=== PATIENT | male | born 1995 | race Caucasian/White ===

== ENCOUNTER 2017-06-27 16:25 | Inpatient (IN) | payer MEDICAID, OTHER ==
[~2017-06-27] VITALS: Ht 177.8 cm; Wt 86.2 kg
[~2017-06-27 16:25] MED LIST: LITH300C3 PO; OLAN10TA3 PO
[2017-06-27 18:34] LABS: BASOPHILS % (AUTO) 0.2 % (0.0-2.0); EOSINOPHILS % (AUTO) 0.9 % (1.0-6.0); HEMATOCRIT 45.2 % (41-53); HEMOGLOBIN 15.6 g/dL (13.5-17.5); LYMPHOCYTES % (AUTO) 19.8 % (22.0-44.0); MEAN CORPUSCULAR HEMOGLOBIN 31.2 pg (26.0-34.0); MEAN CORPUSCULAR HGB CONC 34.6 G/dL (31.0-37.0); MEAN CORPUSCULAR VOLUME 90 fL (80-100); MONOCYTES # (AUTO) 0.8 K/uL (0.1-1.0); MONOCYTES % (AUTO) 8.2 % (2.0-9.0); NEUTROPHILS # (AUTO) 7.3 K/uL (1.8-7.7); NEUTROPHILS % (AUTO) 70.9 % (40.0-70.0); PLATELET COUNT (AUTO) 256 K/uL (150-450); RED BLOOD CELL COUNT(AUTO) 5.01 MIL/uL (4.50-5.90); RED CELL DISTRIBUTION WIDTH 13.1 % (11.5-14.5)
[2017-06-27 18:45] LABS: ANION GAP 11 mmol/L (8-16); CALCIUM, TOTAL 9.5 mg/dL (8.8-10.5); CARBON DIOXIDE 25 mmol/L (22-29); CHLORIDE 99 mmol/L (98-107); CREATININE 1.12 mg/dL (0.60-1.30); GLOMERULAR FILTR. RATE CALC > 60 mL/min (>60); GLUCOSE,RANDOM 101 mg/dL (70-110); POTASSIUM 3.7 mmol/L (3.5-5.1); SODIUM SERUM 135 mmol/L (136-145); UREA NITROGEN, BLOOD 12 mg/dL (7-18)
[2017-06-27 18:53] LABS: ALANINE AMINOTRANSFERASE 38 U/L (12-78); ALBUMIN 4.3 g/dL (3.4-5.0); ALKALINE PHOSPHATASE 83 U/L (46-116); ASPARTATE AMINOTRANSFERASE 30 U/L (15-37); BILIRUBIN,TOTAL 0.6 mg/dL (0.1-1.0); TOTAL PROTEIN, SERUM 8.4 g/dL (6.4-8.2)
[2017-06-27] MEDS ORDERED: HALOPERIDOL 5 MG TABLET PO PRN (19:15)
[2017-06-27] MEDS ORDERED: ZOLPIDEM TARTRATE 10 MG TABLET PO PRN (19:15)
[2017-06-27] MEDS: LORazepam 2 MG TABLET PO PRN (20:35)
[2017-06-27 20:44] VITALS: BP 124/80
[2017-06-27] MEDS ORDERED: INFLUENZA VIRUS VACCINE QVS 2017-18 (3YR+)/PF 60 MCG/0.5 ML SYRINGE IM ONE (21:30)
[2017-06-28 06:27] VITALS: BP 118/72
[2017-06-28 08:52] VITALS: BP 110/71
[2017-06-28] MEDS: LORazepam 2 MG TABLET PO PRN (13:15)
[2017-06-28] MEDS: RisperiDONE 3 MG TABLET PO SCH (14:08)
[2017-06-28] MEDS ORDERED: IBUPROFEN 400 MG TABLET PO PRN (15:45)
[2017-06-28] MEDS ORDERED: ACETAMINOPHEN 325 MG TABLET PO PRN (15:45)
[2017-06-28 16:22] VITALS: BP 113/63
[2017-06-28] MEDS: LITHIUM CARBONATE 600 MG CAPSULE PO SCH (20:16)
[2017-06-29 03:11] VITALS: BP 119/74
[2017-06-29 08:30] LABS: ANION GAP 6 mmol/L (8-16); CALCIUM, TOTAL 8.9 mg/dL (8.8-10.5); CARBON DIOXIDE 28 mmol/L (22-29); CHLORIDE 104 mmol/L (98-107); CREATININE 0.81 mg/dL (0.60-1.30); GLOMERULAR FILTR. RATE CALC > 60 mL/min (>60); GLUCOSE,RANDOM 88 mg/dL (70-110); SODIUM SERUM 138 mmol/L (136-145); THYROID STIMULATING HORMONE 1.42 uIU/mL (0.36-3.74); UREA NITROGEN, BLOOD 15 mg/dL (7-18)
[2017-06-29] MEDS: RisperiDONE 3 MG TABLET PO SCH (08:49)
[2017-06-29 08:55] VITALS: BP 119/66
[2017-06-29] MEDS: LORazepam 2 MG TABLET PO PRN ×2 (09:51→15:39)
[2017-06-29 16:14] VITALS: BP 111/78
[2017-06-29] MEDS: LITHIUM CARBONATE 600 MG CAPSULE PO SCH (21:00)
[2017-06-30 06:35] VITALS: BP 109/74
[2017-06-30 08:26] VITALS: BP 101/73
[2017-06-30] MEDS: RisperiDONE 3 MG TABLET PO SCH (09:01)
[2017-06-30] MEDS: LORazepam 2 MG TABLET PO PRN ×2 (09:01→15:43)
[2017-06-30 16:14] VITALS: BP 125/78
[2017-06-30] MEDS: LITHIUM CARBONATE 600 MG CAPSULE PO SCH (20:45)
[2017-07-01 06:01] VITALS: BP 101/73
[2017-07-01 08:30] VITALS: BP 109/70
[2017-07-01] MEDS: LORazepam 2 MG TABLET PO PRN ×2 (09:17→14:26)
[2017-07-01] MEDS: RisperiDONE 3 MG TABLET PO SCH (09:17)
[2017-07-01 16:38] VITALS: BP 108/62
[2017-07-01] MEDS: LITHIUM CARBONATE 600 MG CAPSULE PO SCH (20:59)
[2017-07-02 06:27] VITALS: BP 106/65
[2017-07-02 08:21] VITALS: BP 98/60
[2017-07-02] MEDS: RisperiDONE 3 MG TABLET PO SCH (09:10)
[2017-07-02] MEDS ORDERED: LITH600 PO (09:23)
[2017-07-02] MEDS ORDERED: RISP3 PO (09:23)
[2017-07-02] MEDS: LORazepam 2 MG TABLET PO PRN (11:08)
== END 2017-07-02 13:00 | disposition home or self-care (01) | DRG 750 ==
LOC: EMS 16:27 → B2S 19:17
PROVIDERS: ADMIT Psychiatry & Neurology Child & Adolescent Psychiatry; ATTEND Psychiatry & Neurology Child & Adolescent Psychiatry
DX: F25.9 Schizoaffective disorder, unspecified (principal); R45.851 Suicidal ideations; F10.10 Alcohol abuse, uncomplicated; Y90.1 Blood alcohol level of 20-39 mg/100 ml; R00.0 Tachycardia, unspecified; Z79.899 Other long term (current) drug therapy; Z71.41 Alcohol abuse counseling and surveillance of alcoholic
CPT/HCPCS: 84443; 87081; G0480

== ENCOUNTER 2017-07-11 11:20 | Inpatient (IN) | payer MEDICAID, OTHER ==
[~2017-07-11] VITALS: Ht 175.3 cm; Wt 86.6 kg
[~2017-07-11 11:20] MED LIST changes: -LITH300C3 PO; +LITH600 PO; -OLAN10TA3 PO; +RISP3 PO
[2017-07-11] MEDS ORDERED: OLAN2.5T3 PO (11:36)
[2017-07-11 12:13] LABS: BASOPHILS % (AUTO) 0.3 % (0.0-2.0); EOSINOPHILS % (AUTO) 0.9 % (1.0-6.0); HEMATOCRIT 40.3 % (41-53); HEMOGLOBIN 14.2 g/dL (13.5-17.5); LYMPHOCYTES # (AUTO) 1.4 K/uL (1.0-4.8); LYMPHOCYTES % (AUTO) 15.9 % (22.0-44.0); MEAN CORPUSCULAR HEMOGLOBIN 31.1 pg (26.0-34.0); MEAN CORPUSCULAR HGB CONC 35.1 G/dL (31.0-37.0); MEAN CORPUSCULAR VOLUME 88 fL (80-100); MONOCYTES # (AUTO) 1.2 K/uL (0.1-1.0); MONOCYTES % (AUTO) 12.8 % (2.0-9.0); NEUTROPHILS # (AUTO) 6.4 K/uL (1.8-7.7); NEUTROPHILS % (AUTO) 70.1 % (40.0-70.0); PLATELET COUNT (AUTO) 267 K/uL (150-450); RED BLOOD CELL COUNT(AUTO) 4.56 MIL/uL (4.50-5.90); RED CELL DISTRIBUTION WIDTH 12.8 % (11.5-14.5)
[2017-07-11 12:24] LABS: ANION GAP 12 mmol/L (8-16); CALCIUM, TOTAL 9.2 mg/dL (8.8-10.5); CARBON DIOXIDE 26 mmol/L (22-29); CHLORIDE 98 mmol/L (98-107); CREATININE 0.74 mg/dL (0.60-1.30); GLOMERULAR FILTR. RATE CALC > 60 mL/min (>60); GLUCOSE,RANDOM 108 mg/dL (70-110); POTASSIUM 3.6 mmol/L (3.5-5.1); SODIUM SERUM 136 mmol/L (136-145); UREA NITROGEN, BLOOD 13 mg/dL (7-18)
[2017-07-11 12:31] LABS: ALANINE AMINOTRANSFERASE 25 U/L (12-78); ALKALINE PHOSPHATASE 101 U/L (46-116); ASPARTATE AMINOTRANSFERASE 22 U/L (15-37); BILIRUBIN,TOTAL 0.8 mg/dL (0.1-1.0); TOTAL PROTEIN, SERUM 7.7 g/dL (6.4-8.2)
[2017-07-11 12:36] LABS: LITHIUM < 0.20 mmol/L (0.60-1.20)
[2017-07-11] MEDS ORDERED: ZOLPIDEM TARTRATE 10 MG TABLET PO PRN (13:00)
[2017-07-11] MEDS ORDERED: HALOPERIDOL 5 MG TABLET PO PRN (13:00)
[2017-07-11 14:35] LABS: AMPHET/METH SCREEN,URINE NEGATIVE (NEGATIVE); BARBITURATE SCREEN, URINE NEGATIVE (NEGATIVE); BENZODIAZEPINES SCREEN,URINE POSITIVE (NEGATIVE); CANNABINOID SCREEN,URINE POSITIVE (NEGATIVE); COCAINE SCREEN,URINE NEGATIVE (NEGATIVE); METHADONE SCREEN, URINE NEGATIVE (NEGATIVE); OPIATE SCREEN,URINE NEGATIVE (NEGATIVE); PHENCYCLIDINE SCREEN,URINE NEGATIVE (NEGATIVE)
[2017-07-11 18:29] VITALS: BP 124/87
[2017-07-11] MEDS ORDERED: PNEUMOCOCCAL VACCINE POLYVALENT 0.5 ML VIAL [PPSV23] IM ONE (18:45)
[2017-07-12 02:00] VITALS: BP 117/60
[2017-07-12 08:18] VITALS: BP 106/63
[2017-07-12 16:22] VITALS: BP 106/63
[2017-07-12] MEDS: RisperiDONE 3 MG TABLET PO SCH (20:08)
[2017-07-12] MEDS: LITHIUM CARBONATE 600 MG CAPSULE PO SCH (20:08)
[2017-07-13 01:30] VITALS: BP 100/62
[2017-07-13 08:53] VITALS: BP 102/61
[2017-07-13] MEDS: LORazepam 2 MG TABLET PO PRN (13:50)
[2017-07-13 16:08] VITALS: BP 110/76
[2017-07-13] MEDS: RisperiDONE 3 MG TABLET PO SCH (20:01)
[2017-07-13] MEDS: LITHIUM CARBONATE 600 MG CAPSULE PO SCH (20:01)
[2017-07-14 06:09] VITALS: BP 114/63
[2017-07-14 08:36] VITALS: BP 110/75
[2017-07-14 08:37] LABS: CHOL/HDL RATIO 3.7 (4.2-7.3)
[2017-07-14] MEDS: LORazepam 2 MG TABLET PO PRN ×2 (11:54→16:57)
[2017-07-14 16:38] VITALS: BP 108/65
[2017-07-14] MEDS: RisperiDONE 3 MG TABLET PO SCH (20:19)
[2017-07-14] MEDS: LITHIUM CARBONATE 600 MG CAPSULE PO SCH (20:19)
[2017-07-15 06:07] VITALS: BP 103/53
[2017-07-15] MEDS ORDERED: RISP3 PO (07:44)
[2017-07-15 08:26] VITALS: BP 109/68
[2017-07-15] MEDS: LORazepam 2 MG TABLET PO PRN ×2 (10:18→16:05)
[2017-07-15 16:03] VITALS: BP 108/64
[2017-07-15] MEDS: RisperiDONE 3 MG TABLET PO SCH (20:14)
[2017-07-15] MEDS: LITHIUM CARBONATE 600 MG CAPSULE PO SCH (20:14)
[2017-07-16 06:22] VITALS: BP 112/60
[2017-07-16 08:25] VITALS: BP 112/78
== END 2017-07-16 11:40 | disposition home or self-care (01) | DRG 750 ==
LOC: EMS 11:21 → B2S 13:39
PROVIDERS: ATTEND Psychiatry & Neurology Child & Adolescent Psychiatry
DX: F25.1 Schizoaffective disorder, depressive type (principal); R45.851 Suicidal ideations; Z91.14 Patient's other noncompliance with medication regimen; F10.10 Alcohol abuse, uncomplicated; F12.10 Cannabis abuse, uncomplicated; F15.10 Other stimulant abuse, uncomplicated; G47.00 Insomnia, unspecified; Z79.899 Other long term (current) drug therapy
CPT/HCPCS: 87081; 90471; 99285; G0480

== ENCOUNTER 2017-07-31 16:25 | Inpatient (IN) | payer MEDICAID, OTHER ==
[~2017-07-31] VITALS: Ht 177.8 cm; Wt 86.0 kg
[2017-07-31 17:25] LABS: BASOPHILS % (AUTO) 0.6 % (0.0-2.0); EOSINOPHILS % (AUTO) 1.3 % (1.0-6.0); HEMATOCRIT 41.2 % (41-53); HEMOGLOBIN 14.5 g/dL (13.5-17.5); LYMPHOCYTES # (AUTO) 2.4 K/uL (1.0-4.8); LYMPHOCYTES % (AUTO) 35.4 % (22.0-44.0); MEAN CORPUSCULAR HEMOGLOBIN 31.5 pg (26.0-34.0); MEAN CORPUSCULAR HGB CONC 35.3 G/dL (31.0-37.0); MEAN CORPUSCULAR VOLUME 89 fL (80-100); MONOCYTES # (AUTO) 0.6 K/uL (0.1-1.0); MONOCYTES % (AUTO) 8.2 % (2.0-9.0); NEUTROPHILS # (AUTO) 3.7 K/uL (1.8-7.7); NEUTROPHILS % (AUTO) 54.5 % (40.0-70.0); PLATELET COUNT (AUTO) 240 K/uL (150-450); RED BLOOD CELL COUNT(AUTO) 4.61 MIL/uL (4.50-5.90); RED CELL DISTRIBUTION WIDTH 12.9 % (11.5-14.5)
[2017-07-31 17:37] LABS: ANION GAP 11 mmol/L (8-16); CALCIUM, TOTAL 8.1 mg/dL (8.8-10.5); CARBON DIOXIDE 27 mmol/L (22-29); CHLORIDE 103 mmol/L (98-107); CREATININE 1.03 mg/dL (0.60-1.30); GLOMERULAR FILTR. RATE CALC > 60 mL/min (>60); GLUCOSE,RANDOM 106 mg/dL (70-110); POTASSIUM 3.9 mmol/L (3.5-5.1); SODIUM SERUM 141 mmol/L (136-145); UREA NITROGEN, BLOOD 12 mg/dL (7-18)
[2017-07-31 17:43] LABS: ALANINE AMINOTRANSFERASE 28 U/L (12-78); ALBUMIN 3.8 g/dL (3.4-5.0); ALKALINE PHOSPHATASE 104 U/L (46-116); ASPARTATE AMINOTRANSFERASE 19 U/L (15-37); BILIRUBIN,TOTAL 0.2 mg/dL (0.1-1.0); TOTAL PROTEIN, SERUM 7.5 g/dL (6.4-8.2)
[2017-07-31] MEDS ORDERED: DiphenhydrAMINE HCL 25 MG CAPSULE PO ONE (18:00)
[2017-07-31] MEDS ORDERED: HALOPERIDOL 5 MG TABLET PO ONE (18:00)
[2017-07-31] MEDS ORDERED: LORazepam 2 MG TABLET PO ONE (18:00)
[2017-07-31] MEDS ORDERED: ZOLPIDEM TARTRATE 10 MG TABLET PO PRN (18:30)
[2017-07-31 21:43] VITALS: BP 126/79
[2017-08-01 08:12] VITALS: BP 129/74
[2017-08-01] MEDS: LORazepam 2 MG TABLET PO PRN (15:41)
[2017-08-01] MEDS ORDERED: ACETAMINOPHEN 325 MG TABLET PO PRN (18:45)
[2017-08-01] MEDS ORDERED: IBUPROFEN 400 MG TABLET PO PRN (18:45)
[2017-08-02 06:42] LABS: HEMOGLOBIN A1C 5.9 % (4.5-6.2)
[2017-08-02 07:42] LABS: CHOL/HDL RATIO 3.9 (4.2-7.3); THYROID STIMULATING HORMONE 1.62 uIU/mL (0.36-3.74)
[2017-08-02 08:30] VITALS: BP 114/67
[2017-08-02] MEDS: HALOPERIDOL 5 MG TABLET PO PRN (10:12)
[2017-08-02] MEDS: LORazepam 2 MG TABLET PO PRN ×2 (10:12→16:26)
[2017-08-02] MEDS: LITHIUM CARBONATE 600 MG CAPSULE PO SCH (21:19)
[2017-08-02] MEDS: RisperiDONE 3 MG TABLET PO SCH (21:19)
[2017-08-03 08:00] VITALS: BP 124/69
[2017-08-03] MEDS: HALOPERIDOL 5 MG TABLET PO PRN ×2 (08:45→13:03)
[2017-08-03] MEDS: LORazepam 2 MG TABLET PO PRN ×2 (08:45→13:03)
[2017-08-03 16:45] VITALS: BP 123/76
[2017-08-03] MEDS: RisperiDONE 3 MG TABLET PO SCH (20:21)
[2017-08-03] MEDS: LITHIUM CARBONATE 600 MG CAPSULE PO SCH (20:21)
[2017-08-04 08:00] VITALS: BP 104/74
[2017-08-04] MEDS: LORazepam 2 MG TABLET PO PRN ×2 (10:45→15:42)
[2017-08-04 16:40] VITALS: BP 135/89
[2017-08-04] MEDS: RisperiDONE 3 MG TABLET PO SCH (21:06)
[2017-08-04] MEDS: LITHIUM CARBONATE 600 MG CAPSULE PO SCH (21:06)
[2017-08-05 08:25] VITALS: BP 126/72
[2017-08-05] MEDS: LORazepam 2 MG TABLET PO PRN (10:39)
== END 2017-08-05 14:50 | disposition home or self-care (01) | DRG 750 ==
LOC: EMS 16:26 → 3EC 20:12
PROVIDERS: ADMIT Psychiatry & Neurology Child & Adolescent Psychiatry; ATTEND Psychiatry & Neurology Child & Adolescent Psychiatry
DX: F25.9 Schizoaffective disorder, unspecified (principal); R45.851 Suicidal ideations; F32.9 Major depressive disorder, single episode, unspecified; F10.10 Alcohol abuse, uncomplicated; E78.5 Hyperlipidemia, unspecified; F15.90 Other stimulant use, unspecified, uncomplicated; F12.90 Cannabis use, unspecified, uncomplicated; Y90.6 Blood alcohol level of 120-199 mg/100 ml; Z79.899 Other long term (current) drug therapy; Z71.41 Alcohol abuse counseling and surveillance of alcoholic
CPT/HCPCS: 83036; 84443; 87081; 99285; G0480

== ENCOUNTER 2017-08-31 22:22 | Emergency (ER) | payer MEDICAID, OTHER ==
[~2017-08-31] VITALS: Ht 177.8 cm; Wt 86.0 kg
[2017-08-31 22:49] VITALS: BP 126/84
[2017-08-31 23:44] LABS: BASOPHILS % (AUTO) 0.4 % (0.0-2.0); EOSINOPHILS % (AUTO) 0.6 % (1.0-6.0); HEMATOCRIT 41.9 % (41-53); HEMOGLOBIN 14.8 g/dL (13.5-17.5); LYMPHOCYTES # (AUTO) 1.7 K/uL (1.0-4.8); MEAN CORPUSCULAR HEMOGLOBIN 31.6 pg (26.0-34.0); MEAN CORPUSCULAR HGB CONC 35.2 G/dL (31.0-37.0); MEAN CORPUSCULAR VOLUME 90 fL (80-100); MONOCYTES # (AUTO) 0.8 K/uL (0.1-1.0); MONOCYTES % (AUTO) 10.6 % (2.0-9.0); NEUTROPHILS % (AUTO) 66.4 % (40.0-70.0); PLATELET COUNT (AUTO) 251 K/uL (150-450); RED BLOOD CELL COUNT(AUTO) 4.67 MIL/uL (4.50-5.90); RED CELL DISTRIBUTION WIDTH 13.1 % (11.5-14.5)
[2017-08-31 23:53] LABS: ANION GAP 9 mmol/L (8-16); CALCIUM, TOTAL 8.7 mg/dL (8.8-10.5); CARBON DIOXIDE 27 mmol/L (22-29); CHLORIDE 101 mmol/L (98-107); CREATININE 0.94 mg/dL (0.60-1.30); GLOMERULAR FILTR. RATE CALC > 60 mL/min (>60); GLUCOSE,RANDOM 87 mg/dL (70-110); POTASSIUM 3.7 mmol/L (3.5-5.1); SODIUM SERUM 137 mmol/L (136-145); UREA NITROGEN, BLOOD 9 mg/dL (7-18)
[2017-08-31 23:59] LABS: ALANINE AMINOTRANSFERASE 29 U/L (12-78); ALKALINE PHOSPHATASE 84 U/L (46-116); ASPARTATE AMINOTRANSFERASE 19 U/L (15-37); BILIRUBIN,TOTAL 0.5 mg/dL (0.1-1.0); TOTAL PROTEIN, SERUM 7.8 g/dL (6.4-8.2)
[2017-09-01] MEDS ORDERED: RisperiDONE 1 MG TABLET PO ONE (01:30)
[2017-09-01] MEDS ORDERED: RisperiDONE 3 MG TABLET PO ONE (01:30)
[2017-09-01] MEDS ORDERED: LITHIUM CARBONATE 600 MG CAPSULE PO ONE (01:30)
== END 2017-09-01 01:40 | disposition home or self-care (01) ==
LOC: EMS 22:23
DX: F25.9 Schizoaffective disorder, unspecified (principal); M79.1 Myalgia; F12.90 Cannabis use, unspecified, uncomplicated; F17.210 Nicotine dependence, cigarettes, uncomplicated; F15.90 Other stimulant use, unspecified, uncomplicated
CPT/HCPCS: 36415; 80053; 80178; 85025; 99284; 99406; G0480

== ENCOUNTER 2017-09-22 09:53 | Inpatient (IN) | payer MEDICAID, OTHER ==
[~2017-09-22] VITALS: Ht 177.8 cm; Wt 82.6 kg
[2017-09-22 11:13] LABS: BASOPHILS % (AUTO) 0.3 % (0.0-2.0); EOSINOPHILS % (AUTO) 0.2 % (1.0-6.0); HEMATOCRIT 44.6 % (41-53); HEMOGLOBIN 15.7 g/dL (13.5-17.5); LYMPHOCYTES # (AUTO) 1.3 K/uL (1.0-4.8); LYMPHOCYTES % (AUTO) 19.8 % (22.0-44.0); MEAN CORPUSCULAR HGB CONC 35.3 G/dL (31.0-37.0); MEAN CORPUSCULAR VOLUME 91 fL (80-100); MONOCYTES # (AUTO) 0.6 K/uL (0.1-1.0); MONOCYTES % (AUTO) 8.5 % (2.0-9.0); NEUTROPHILS # (AUTO) 4.8 K/uL (1.8-7.7); NEUTROPHILS % (AUTO) 71.2 % (40.0-70.0); PLATELET COUNT (AUTO) 195 K/uL (150-450); RED BLOOD CELL COUNT(AUTO) 4.92 MIL/uL (4.50-5.90); RED CELL DISTRIBUTION WIDTH 13.9 % (11.5-14.5)
[2017-09-22 11:30] LABS: ANION GAP 9 mmol/L (8-16); CALCIUM, TOTAL 9.2 mg/dL (8.8-10.5); CARBON DIOXIDE 27 mmol/L (22-29); CHLORIDE 101 mmol/L (98-107); GLOMERULAR FILTR. RATE CALC > 60 mL/min (>60); GLUCOSE,RANDOM 94 mg/dL (70-110); POTASSIUM 4.1 mmol/L (3.5-5.1); SODIUM SERUM 137 mmol/L (136-145); UREA NITROGEN, BLOOD 15 mg/dL (7-18)
[2017-09-22 11:35] LABS: ALANINE AMINOTRANSFERASE 45 U/L (12-78); ALKALINE PHOSPHATASE 94 U/L (46-116); ASPARTATE AMINOTRANSFERASE 28 U/L (15-37); TOTAL PROTEIN, SERUM 8.2 g/dL (6.4-8.2)
[2017-09-22] MEDS ORDERED: DiphenhydrAMINE HCL 50 MG/ML VIAL IM ONE (14:45)
[2017-09-22] MEDS ORDERED: LORazepam 2 MG/ML VIAL IM ONE (14:45)
[2017-09-22] MEDS ORDERED: HALOPERIDOL LACTATE 5 MG/ML VIAL IM ONE (14:45)
[2017-09-22] MEDS ORDERED: LORazepam 2 MG TABLET PO ONE (15:45)
[2017-09-22] MEDS ORDERED: HALOPERIDOL 5 MG TABLET PO ONE (15:45)
[2017-09-22] MEDS ORDERED: DiphenhydrAMINE HCL 50 MG CAPSULE PO ONE (15:45)
[2017-09-22] MEDS ORDERED: IBUPROFEN 400 MG TABLET PO PRN (16:00)
[2017-09-22] MEDS ORDERED: ACETAMINOPHEN 325 MG TABLET PO PRN (16:00)
[2017-09-22] MEDS ORDERED: ZOLPIDEM TARTRATE 10 MG TABLET PO PRN (16:00)
[2017-09-22 16:19] LABS: AMPHET/METH SCREEN,URINE NEGATIVE (NEGATIVE); BARBITURATE SCREEN, URINE NEGATIVE (NEGATIVE); BENZODIAZEPINES SCREEN,URINE NEGATIVE (NEGATIVE); CANNABINOID SCREEN,URINE NEGATIVE (NEGATIVE); COCAINE SCREEN,URINE NEGATIVE (NEGATIVE); METHADONE SCREEN, URINE NEGATIVE (NEGATIVE); OPIATE SCREEN,URINE NEGATIVE (NEGATIVE)
[2017-09-22 16:21] LABS: PHENCYCLIDINE SCREEN,URINE NEGATIVE (NEGATIVE)
[2017-09-22 16:37] LABS: GLUCOSE, URINE (UA) NEGATIVE (NEGATIVE); KETONES,URINE 40 mg/dL (NEGATIVE); LEUKOCYTE ESTERASE ,URINE NEGATIVE (NEGATIVE); NITRATE,URINE NEGATIVE (NEGATIVE); OCCULT BLOOD,URINE NEGATIVE (NEGATIVE); PH,URINE 5.5 (5.0-8.0); PROTEIN,URINE NEGATIVE (NEGATIVE)
[2017-09-22 16:43] LABS: BILIRUBIN,URINE PRELIM. POSITIVE (NEGATIVE)
[2017-09-22 16:44] LABS: APPEARANCE,URINE HAZY (CLEAR)
[2017-09-22 18:00] VITALS: BP 137/76
[2017-09-23 06:38] VITALS: BP 133/69
[2017-09-23 08:15] VITALS: BP 118/67
[2017-09-23] MEDS: NICOTINE 14 MG/24 HOUR PATCH TD SCH (09:00)
[2017-09-23] MEDS: LORazepam 2 MG TABLET PO PRN ×2 (11:52→16:55)
[2017-09-23] MEDS: HALOPERIDOL 5 MG TABLET PO PRN ×2 (11:52→16:55)
[2017-09-23 16:00] VITALS: BP 113/65
[2017-09-23] MEDS ORDERED: LITHIUM CARBONATE 300 MG ER TABLET PO SCH (21:00)
[2017-09-23] MEDS: LITHIUM CARBONATE 300 MG ER TABLET PO SCH (21:09)
[2017-09-23] MEDS: RisperiDONE 3 MG TABLET PO SCH (21:09)
[2017-09-24 00:58] VITALS: BP 111/67
[2017-09-24 08:06] VITALS: BP 120/64
[2017-09-24] MEDS: NICOTINE 14 MG/24 HOUR PATCH TD SCH (08:28)
[2017-09-24] MEDS: HALOPERIDOL 5 MG TABLET PO PRN ×2 (08:28→16:43)
[2017-09-24] MEDS: LORazepam 2 MG TABLET PO PRN ×2 (08:28→16:43)
[2017-09-24 16:41] VITALS: BP 120/69
[2017-09-24] MEDS: LITHIUM CARBONATE 300 MG ER TABLET PO SCH (21:54)
[2017-09-24] MEDS: RisperiDONE 3 MG TABLET PO SCH (21:55)
[2017-09-25 06:22] VITALS: BP 118/68
[2017-09-25 08:10] VITALS: BP 112/62
[2017-09-25 08:24] LABS: BASOPHILS % (AUTO) 0.2 % (0.0-2.0); HEMATOCRIT 44.7 % (41-53); HEMOGLOBIN 15.7 g/dL (13.5-17.5); LYMPHOCYTES # (AUTO) 1.5 K/uL (1.0-4.8); LYMPHOCYTES % (AUTO) 24.4 % (22.0-44.0); MEAN CORPUSCULAR HEMOGLOBIN 32.2 pg (26.0-34.0); MEAN CORPUSCULAR HGB CONC 35.1 G/dL (31.0-37.0); MEAN CORPUSCULAR VOLUME 92 fL (80-100); MONOCYTES # (AUTO) 0.5 K/uL (0.1-1.0); MONOCYTES % (AUTO) 8.4 % (2.0-9.0); NEUTROPHILS # (AUTO) 4.1 K/uL (1.8-7.7); PLATELET COUNT (AUTO) 195 K/uL (150-450); RED BLOOD CELL COUNT(AUTO) 4.87 MIL/uL (4.50-5.90); RED CELL DISTRIBUTION WIDTH 14.1 % (11.5-14.5)
[2017-09-25 08:36] LABS: HEMOGLOBIN A1C 5.3 % (4.5-6.2)
[2017-09-25] MEDS: NICOTINE 14 MG/24 HOUR PATCH TD SCH (09:00)
[2017-09-25] MEDS: HALOPERIDOL 5 MG TABLET PO PRN (09:02)
[2017-09-25] MEDS: LORazepam 2 MG TABLET PO PRN (09:02)
[2017-09-25 09:23] LABS: ALANINE AMINOTRANSFERASE 53 U/L (12-78); ALBUMIN 3.8 g/dL (3.4-5.0); ALKALINE PHOSPHATASE 78 U/L (46-116); ANION GAP 9 mmol/L (8-16); ASPARTATE AMINOTRANSFERASE 34 U/L (15-37); BILIRUBIN,TOTAL 0.4 mg/dL (0.1-1.0); CALCIUM, TOTAL 9.2 mg/dL (8.8-10.5); CARBON DIOXIDE 26 mmol/L (22-29); CHLORIDE 103 mmol/L (98-107); CHOL/HDL RATIO 4.1 (4.2-7.3); CHOLESTEROL 169 mg/dL (131-200); CREATININE 0.82 mg/dL (0.60-1.30); GLOMERULAR FILTR. RATE CALC > 60 mL/min (>60); GLUCOSE,RANDOM 91 mg/dL (70-110); HDL CHOLESTEROL 41 mg/dL (40-60); LDL CHOL (CALC.) 108 mg/dL (0-130); POTASSIUM 4.1 mmol/L (3.5-5.1); SODIUM SERUM 138 mmol/L (136-145); THYROID STIMULATING HORMONE 2.24 uIU/mL (0.36-3.74); TOTAL PROTEIN, SERUM 7.5 g/dL (6.4-8.2); TRIGLYCERIDES 100 mg/dL (15-150)
[2017-09-25 09:46] LABS: UREA NITROGEN, BLOOD 12 mg/dL (7-18)
[2017-09-25 16:06] VITALS: BP 110/59
[2017-09-25] MEDS: RisperiDONE 3 MG TABLET PO SCH (20:25)
[2017-09-25] MEDS: LITHIUM CARBONATE 300 MG ER TABLET PO SCH (20:25)
[2017-09-26 06:19] VITALS: BP 120/62
[2017-09-26 08:29] VITALS: BP 98/51
[2017-09-26] MEDS: LORazepam 2 MG TABLET PO PRN ×2 (08:34→16:20)
[2017-09-26] MEDS: HALOPERIDOL 5 MG TABLET PO PRN ×2 (08:34→16:20)
[2017-09-26] MEDS: NICOTINE 14 MG/24 HOUR PATCH TD SCH (09:00)
[2017-09-26 16:00] VITALS: BP 105/69
[2017-09-26] MEDS: LITHIUM CARBONATE 300 MG ER TABLET PO SCH (20:29)
[2017-09-26] MEDS: RisperiDONE 3 MG TABLET PO SCH (20:29)
[2017-09-27 07:01] VITALS: BP 108/65
[2017-09-27 08:18] VITALS: BP 106/64
[2017-09-27] MEDS: LORazepam 2 MG TABLET PO PRN ×2 (08:39→17:05)
[2017-09-27] MEDS: HALOPERIDOL 5 MG TABLET PO PRN ×2 (08:39→17:04)
[2017-09-27 16:00] VITALS: BP 106/65
[2017-09-27] MEDS: RisperiDONE 3 MG TABLET PO SCH (20:25)
[2017-09-27] MEDS: LITHIUM CARBONATE 300 MG ER TABLET PO SCH (20:25)
[2017-09-28 06:52] VITALS: BP 116/73
[2017-09-28] MEDS: HALOPERIDOL 5 MG TABLET PO PRN (08:12)
[2017-09-28] MEDS: LORazepam 2 MG TABLET PO PRN (08:12)
[2017-09-28] MEDS ORDERED: LITH300CRT PO (09:10)
[2017-09-28] MEDS ORDERED: RISP3 PO (09:10)
[2017-09-28 10:43] VITALS: BP 100/60
== END 2017-09-28 15:10 | disposition home or self-care (01) | DRG 750 ==
LOC: EMS 09:54 → B3A 16:20
DX: F25.1 Schizoaffective disorder, depressive type (principal); Z91.14 Patient's other noncompliance with medication regimen; F15.10 Other stimulant abuse, uncomplicated; F17.200 Nicotine dependence, unspecified, uncomplicated; G47.00 Insomnia, unspecified; Z79.899 Other long term (current) drug therapy; F12.90 Cannabis use, unspecified, uncomplicated; F10.10 Alcohol abuse, uncomplicated; Z71.41 Alcohol abuse counseling and surveillance of alcoholic; Z71.6 Tobacco abuse counseling; Z71.51 Drug abuse counseling and surveillance of drug abuser; Y90.0 Blood alcohol level of less than 20 mg/100 ml
CPT/HCPCS: 83036; 84443; 99285; 99406; G0480

== ENCOUNTER 2017-10-01 15:00 | Inpatient (IN) | payer MEDICAID ==
[~2017-10-01] VITALS: Ht 177.8 cm; Wt 86.0 kg
[~2017-10-01 15:00] MED LIST changes: +LITH300CRT PO; -LITH600 PO
[2017-10-01 17:45] VITALS: BP 115/75
[2017-10-01] MEDS ORDERED: IBUPROFEN 400 MG TABLET PO PRN (20:15)
[2017-10-01] MEDS ORDERED: ACETAMINOPHEN 325 MG TABLET PO PRN (20:15)
[2017-10-01] MEDS ORDERED: MAGNESIUM HYDROXIDE SUSPENSION 30 ML UDCUP PO PRN (20:15)
[2017-10-01] MEDS ORDERED: ONDANSETRON HCL 4 MG TABLET PO PRN (20:15)
[2017-10-01] MEDS ORDERED: MAG HYDROX/AL HYDROX/SIMETH ES 30 ML SUSPENSION UDCUP PO PRN (20:15)
[2017-10-01] MEDS ORDERED: PETROLATUM,WHITE 71 GM JELLY TP PRN (20:15)
[2017-10-01] MEDS ORDERED: DOCUSATE SODIUM 100 MG CAPSULE PO PRN (20:15)
[2017-10-01] MEDS ORDERED: CloNIDine HCL 0.1 MG TABLET PO PRN (20:15)
[2017-10-01] MEDS ORDERED: LOPERAMIDE HCL 2 MG CAPSULE PO PRN (20:15)
[2017-10-02 06:22] VITALS: BP 118/80
[2017-10-02 08:00] VITALS: BP 121/69
[2017-10-02] MEDS: NICOTINE 14 MG/24 HOUR PATCH TD SCH (08:49)
[2017-10-02] MEDS: LORazepam 2 MG TABLET PO PRN ×2 (08:49→16:24)
[2017-10-02 16:00] VITALS: BP 109/65
[2017-10-02] MEDS: HALOPERIDOL 5 MG TABLET PO PRN (16:24)
[2017-10-02] MEDS: LITHIUM CARBONATE 300 MG ER TABLET PO SCH (20:19)
[2017-10-02] MEDS: RisperiDONE 3 MG TABLET PO SCH (20:19)
[2017-10-03 06:44] VITALS: BP 107/65
[2017-10-03 08:28] VITALS: BP 107/66
[2017-10-03] MEDS: LORazepam 2 MG TABLET PO PRN ×3 (08:46→20:58)
[2017-10-03] MEDS: NICOTINE 14 MG/24 HOUR PATCH TD SCH (09:00)
[2017-10-03] MEDS: HALOPERIDOL 5 MG TABLET PO PRN (14:40)
[2017-10-03 16:26] VITALS: BP 123/71
[2017-10-03] MEDS: RisperiDONE 3 MG TABLET PO SCH (20:58)
[2017-10-03] MEDS: ZOLPIDEM TARTRATE 10 MG TABLET PO PRN (20:58)
[2017-10-03] MEDS: LITHIUM CARBONATE 300 MG ER TABLET PO SCH (20:58)
[2017-10-04 01:57] VITALS: BP 131/78
[2017-10-04 08:10] VITALS: BP 103/63
[2017-10-04] MEDS: LORazepam 2 MG TABLET PO PRN ×2 (10:10→16:26)
[2017-10-04] MEDS: HALOPERIDOL 5 MG TABLET PO PRN ×2 (10:10→16:26)
[2017-10-04 16:32] VITALS: BP 123/73
[2017-10-04] MEDS: ZOLPIDEM TARTRATE 10 MG TABLET PO PRN (20:30)
[2017-10-04] MEDS: RisperiDONE 3 MG TABLET PO SCH (20:30)
[2017-10-04] MEDS: LITHIUM CARBONATE 300 MG ER TABLET PO SCH (20:30)
[2017-10-05 06:37] VITALS: BP 103/66
[2017-10-05 08:36] VITALS: BP 118/71
[2017-10-05] MEDS: HALOPERIDOL 5 MG TABLET PO PRN ×2 (09:08→16:08)
[2017-10-05] MEDS: LORazepam 2 MG TABLET PO PRN ×2 (09:08→16:08)
[2017-10-05 09:21] LABS: BASOPHILS % (AUTO) 0.1 % (0.0-2.0); EOSINOPHILS % (AUTO) 1.2 % (1.0-6.0); HEMATOCRIT 45.6 % (41-53); LYMPHOCYTES # (AUTO) 1.6 K/uL (1.0-4.8); LYMPHOCYTES % (AUTO) 20.5 % (22.0-44.0); MEAN CORPUSCULAR HGB CONC 35.2 G/dL (31.0-37.0); MEAN CORPUSCULAR VOLUME 91 fL (80-100); MONOCYTES # (AUTO) 0.5 K/uL (0.1-1.0); NEUTROPHILS # (AUTO) 5.5 K/uL (1.8-7.7); NEUTROPHILS % (AUTO) 71.2 % (40.0-70.0); PLATELET COUNT (AUTO) 268 K/uL (150-450); RED BLOOD CELL COUNT(AUTO) 5.02 MIL/uL (4.50-5.90); RED CELL DISTRIBUTION WIDTH 13.7 % (11.5-14.5)
[2017-10-05 09:43] LABS: LITHIUM 0.55 mmol/L (0.60-1.20)
[2017-10-05 10:05] LABS: ALANINE AMINOTRANSFERASE 42 U/L (12-78); ALBUMIN 3.7 g/dL (3.4-5.0); ALKALINE PHOSPHATASE 82 U/L (46-116); ANION GAP 8 mmol/L (8-16); ASPARTATE AMINOTRANSFERASE 17 U/L (15-37); BILIRUBIN,TOTAL 0.3 mg/dL (0.1-1.0); CALCIUM, TOTAL 9.6 mg/dL (8.8-10.5); CARBON DIOXIDE 26 mmol/L (22-29); CHLORIDE 101 mmol/L (98-107); CHOL/HDL RATIO 4.2 (4.2-7.3); CHOLESTEROL 168 mg/dL (131-200); CREATININE 0.78 mg/dL (0.60-1.30); GLOMERULAR FILTR. RATE CALC > 60 mL/min (>60); GLUCOSE,RANDOM 99 mg/dL (70-110); HDL CHOLESTEROL 40 mg/dL (40-60); LDL CHOL (CALC.) 98 mg/dL (0-130); POTASSIUM 4.3 mmol/L (3.5-5.1); SODIUM SERUM 135 mmol/L (136-145); THYROID STIMULATING HORMONE 1.61 uIU/mL (0.36-3.74); TOTAL PROTEIN, SERUM 7.8 g/dL (6.4-8.2); TRIGLYCERIDES 152 mg/dL (15-150); UREA NITROGEN, BLOOD 13 mg/dL (7-18)
[2017-10-05 16:00] VITALS: BP 124/74
[2017-10-05] MEDS: ZOLPIDEM TARTRATE 10 MG TABLET PO PRN (20:17)
[2017-10-05] MEDS: RisperiDONE 3 MG TABLET PO SCH (20:17)
[2017-10-05] MEDS: LITHIUM CARBONATE 300 MG ER TABLET PO SCH (20:17)
[2017-10-06 06:32] VITALS: BP 120/72
[2017-10-06 09:30] VITALS: BP 124/78
[2017-10-06] MEDS: LORazepam 2 MG TABLET PO PRN ×2 (09:36→13:58)
[2017-10-06] MEDS: HALOPERIDOL 5 MG TABLET PO PRN ×2 (09:36→13:58)
[2017-10-06 16:22] VITALS: BP 106/60
[2017-10-06] MEDS: LITHIUM CARBONATE 300 MG ER TABLET PO SCH (21:24)
[2017-10-06] MEDS: RisperiDONE 3 MG TABLET PO SCH (21:24)
[2017-10-06] MEDS: ZOLPIDEM TARTRATE 10 MG TABLET PO PRN (21:24)
[2017-10-07 00:28] VITALS: BP 101/61
[2017-10-07 08:05] VITALS: BP 117/62
[2017-10-07] MEDS: HALOPERIDOL 5 MG TABLET PO PRN (08:38)
[2017-10-07] MEDS: LORazepam 2 MG TABLET PO PRN (08:38)
[2017-10-07 16:00] VITALS: BP 110/68
[2017-10-07] MEDS ORDERED: PALIPERIDONE PALMITATE 234 MG/1.5 ML SYRINGE IM ONE (16:00)
[2017-10-07] MEDS: ZOLPIDEM TARTRATE 10 MG TABLET PO PRN (20:35)
[2017-10-07] MEDS: RisperiDONE 3 MG TABLET PO SCH (20:35)
[2017-10-07] MEDS: LITHIUM CARBONATE 450 MG ER TABLET PO SCH (20:35)
[2017-10-08 06:33] VITALS: BP 116/75
[2017-10-08 08:24] VITALS: BP 103/64
[2017-10-08] MEDS: HALOPERIDOL 5 MG TABLET PO PRN ×2 (13:58→19:25)
[2017-10-08] MEDS: LORazepam 2 MG TABLET PO PRN ×2 (13:58→19:25)
[2017-10-08 16:00] VITALS: BP 126/72
[2017-10-08] MEDS: RisperiDONE 3 MG TABLET PO SCH (20:54)
[2017-10-08] MEDS: LITHIUM CARBONATE 450 MG ER TABLET PO SCH (20:54)
[2017-10-08] MEDS: ZOLPIDEM TARTRATE 10 MG TABLET PO PRN (20:54)
[2017-10-09 04:25] VITALS: BP 115/70
[2017-10-09 08:14] VITALS: BP 101/61
[2017-10-09] MEDS ORDERED: TUBERCULIN, PURIFIED PROTEIN DERIVATIVE 5 TU/0.1 ML SYG ID ONE (08:45)
[2017-10-09] MEDS: LORazepam 2 MG TABLET PO PRN ×2 (13:00→17:06)
[2017-10-09] MEDS: HALOPERIDOL 5 MG TABLET PO PRN ×2 (13:00→17:06)
[2017-10-09 16:00] VITALS: BP 131/86
[2017-10-09] MEDS: ZOLPIDEM TARTRATE 10 MG TABLET PO PRN (20:46)
[2017-10-09] MEDS: RisperiDONE 3 MG TABLET PO SCH (20:46)
[2017-10-09] MEDS: LITHIUM CARBONATE 450 MG ER TABLET PO SCH (20:46)
[2017-10-10 06:28] VITALS: BP 110/63
[2017-10-10 07:38] VITALS: BP 112/74
[2017-10-10] MEDS: LORazepam 2 MG TABLET PO PRN ×2 (10:04→14:07)
[2017-10-10] MEDS: HALOPERIDOL 5 MG TABLET PO PRN (10:04)
[2017-10-10 13:01] VITALS: BP 112/74
[2017-10-10 16:20] VITALS: BP 103/62
[2017-10-10] MEDS: RisperiDONE 3 MG TABLET PO SCH (20:26)
[2017-10-10] MEDS: LITHIUM CARBONATE 450 MG ER TABLET PO SCH (20:26)
[2017-10-11 06:28] VITALS: BP 105/66
[2017-10-11 08:36] VITALS: BP 107/62
[2017-10-11] MEDS ORDERED: PALIPERIDONE PALMITATE 156 MG/ML SYRINGE IM ONE (09:00)
[2017-10-11] MEDS: HALOPERIDOL 5 MG TABLET PO PRN ×2 (09:18→16:48)
[2017-10-11] MEDS: LORazepam 2 MG TABLET PO PRN ×2 (09:18→16:48)
[2017-10-11 16:11] VITALS: BP 121/71
[2017-10-11] MEDS: RisperiDONE 3 MG TABLET PO SCH (20:57)
[2017-10-11] MEDS: LITHIUM CARBONATE 450 MG ER TABLET PO SCH (20:57)
[2017-10-12 06:25] VITALS: BP 109/68
[2017-10-12 08:06] VITALS: BP 112/60
[2017-10-12 08:32] LABS: ANION GAP 10 mmol/L (8-16); CALCIUM, TOTAL 9.3 mg/dL (8.8-10.5); CARBON DIOXIDE 26 mmol/L (22-29); CHLORIDE 101 mmol/L (98-107); CREATININE 0.82 mg/dL (0.60-1.30); GLOMERULAR FILTR. RATE CALC > 60 mL/min (>60); GLUCOSE,RANDOM 108 mg/dL (70-110); SODIUM SERUM 137 mmol/L (136-145); UREA NITROGEN, BLOOD 14 mg/dL (7-18)
[2017-10-12] MEDS: LORazepam 2 MG TABLET PO PRN ×2 (10:54→16:41)
[2017-10-12] MEDS: HALOPERIDOL 5 MG TABLET PO PRN ×2 (10:54→16:41)
[2017-10-12 16:06] VITALS: BP 126/73
[2017-10-12] MEDS: RisperiDONE 3 MG TABLET PO SCH (21:01)
[2017-10-12] MEDS: ZOLPIDEM TARTRATE 10 MG TABLET PO PRN (21:01)
[2017-10-12] MEDS: LITHIUM CARBONATE 450 MG ER TABLET PO SCH (21:01)
[2017-10-13 06:21] VITALS: BP 116/65
[2017-10-13 08:12] VITALS: BP 108/62
[2017-10-13] MEDS: LORazepam 2 MG TABLET PO PRN ×2 (08:31→16:11)
[2017-10-13] MEDS: HALOPERIDOL 5 MG TABLET PO PRN ×2 (08:31→16:11)
[2017-10-13 16:00] VITALS: BP 135/75
[2017-10-13] MEDS: LITHIUM CARBONATE 450 MG ER TABLET PO SCH (20:33)
[2017-10-13] MEDS: RisperiDONE 3 MG TABLET PO SCH (20:34)
[2017-10-14 05:19] VITALS: BP 132/72
[2017-10-14 08:23] VITALS: BP 109/59
[2017-10-14] MEDS: LORazepam 2 MG TABLET PO PRN ×2 (09:34→16:05)
[2017-10-14] MEDS: HALOPERIDOL 5 MG TABLET PO PRN ×2 (09:34→16:05)
[2017-10-14 16:00] VITALS: BP 118/71
[2017-10-14] MEDS: RisperiDONE 3 MG TABLET PO SCH (20:43)
[2017-10-14] MEDS: LITHIUM CARBONATE 450 MG ER TABLET PO SCH (20:43)
[2017-10-15 05:30] VITALS: BP 106/69
[2017-10-15 08:05] VITALS: BP 104/60
[2017-10-15] MEDS: HALOPERIDOL 5 MG TABLET PO PRN ×2 (08:43→13:58)
[2017-10-15] MEDS: LORazepam 2 MG TABLET PO PRN ×3 (08:43→20:38)
[2017-10-15 16:27] VITALS: BP 108/64
[2017-10-15] MEDS: LITHIUM CARBONATE 450 MG ER TABLET PO SCH (20:37)
[2017-10-15] MEDS: RisperiDONE 3 MG TABLET PO SCH (20:37)
[2017-10-16 06:26] VITALS: BP 11/72
[2017-10-16 08:00] VITALS: BP 110/63
[2017-10-16] MEDS: LORazepam 2 MG TABLET PO PRN ×2 (10:38→16:11)
[2017-10-16] MEDS: HALOPERIDOL 5 MG TABLET PO PRN ×2 (10:38→16:11)
[2017-10-16 16:00] VITALS: BP 130/78
[2017-10-16] MEDS: LITHIUM CARBONATE 450 MG ER TABLET PO SCH (20:06)
[2017-10-16] MEDS: ZOLPIDEM TARTRATE 10 MG TABLET PO PRN (20:06)
[2017-10-16] MEDS: RisperiDONE 3 MG TABLET PO SCH (20:06)
[2017-10-17 06:23] VITALS: BP 105/68
[2017-10-17 08:00] VITALS: BP 113/66
[2017-10-17] MEDS: HALOPERIDOL 5 MG TABLET PO PRN ×2 (11:31→16:53)
[2017-10-17] MEDS: LORazepam 2 MG TABLET PO PRN ×2 (11:31→16:53)
[2017-10-17 16:13] VITALS: BP 118/68
[2017-10-17] MEDS: RisperiDONE 3 MG TABLET PO SCH (20:48)
[2017-10-17] MEDS: LITHIUM CARBONATE 450 MG ER TABLET PO SCH (20:48)
[2017-10-18 06:26] VITALS: BP 111/65
[2017-10-18 08:09] VITALS: BP 112/64
[2017-10-18] MEDS: HALOPERIDOL 5 MG TABLET PO PRN ×2 (09:56→14:48)
[2017-10-18] MEDS: LORazepam 2 MG TABLET PO PRN ×2 (09:57→14:48)
[2017-10-18 16:07] VITALS: BP 112/64
[2017-10-18] MEDS: RisperiDONE 3 MG TABLET PO SCH (20:49)
[2017-10-18] MEDS: LITHIUM CARBONATE 450 MG ER TABLET PO SCH (20:49)
[2017-10-19 05:17] VITALS: BP 119/62
[2017-10-19 08:05] VITALS: BP 114/60
[2017-10-19] MEDS: HALOPERIDOL 5 MG TABLET PO PRN (09:52)
[2017-10-19] MEDS: LORazepam 2 MG TABLET PO PRN ×2 (09:52→14:47)
[2017-10-19] MEDS: CITALOPRAM HYDROBROMIDE 10 MG TABLET PO SCH (09:56)
[2017-10-19 16:05] VITALS: BP 117/65
[2017-10-19] MEDS: RisperiDONE 3 MG TABLET PO SCH (20:44)
[2017-10-19] MEDS: LITHIUM CARBONATE 450 MG ER TABLET PO SCH (20:45)
[2017-10-20 00:13] VITALS: BP 101/63
[2017-10-20 08:09] VITALS: BP 110/66
[2017-10-20] MEDS: CITALOPRAM HYDROBROMIDE 10 MG TABLET PO SCH (08:50)
[2017-10-20] MEDS: HALOPERIDOL 5 MG TABLET PO PRN (13:00)
[2017-10-20] MEDS: LORazepam 2 MG TABLET PO PRN (13:00)
[2017-10-20 16:38] VITALS: BP 111/65
[2017-10-20] MEDS: ZOLPIDEM TARTRATE 10 MG TABLET PO PRN (20:20)
[2017-10-20] MEDS: RisperiDONE 3 MG TABLET PO SCH (20:20)
[2017-10-20] MEDS: LITHIUM CARBONATE 450 MG ER TABLET PO SCH (20:20)
[2017-10-21 00:21] VITALS: BP 101/62
[2017-10-21] MEDS: LORazepam 2 MG TABLET PO PRN ×2 (05:52→12:50)
[2017-10-21 08:08] VITALS: BP 109/62
[2017-10-21] MEDS: CITALOPRAM HYDROBROMIDE 10 MG TABLET PO SCH (08:37)
[2017-10-21] MEDS: HALOPERIDOL 5 MG TABLET PO PRN (12:50)
[2017-10-21 16:09] VITALS: BP 118/73
[2017-10-21] MEDS: RisperiDONE 3 MG TABLET PO SCH (20:39)
[2017-10-21] MEDS: LITHIUM CARBONATE 450 MG ER TABLET PO SCH (20:39)
[2017-10-22 06:41] VITALS: BP 106/65
[2017-10-22 08:56] VITALS: BP 110/68
[2017-10-22] MEDS: CITALOPRAM HYDROBROMIDE 10 MG TABLET PO SCH (09:25)
[2017-10-22] MEDS: LORazepam 2 MG TABLET PO PRN (09:25)
[2017-10-22] MEDS: HALOPERIDOL 5 MG TABLET PO PRN (09:25)
[2017-10-22 16:33] VITALS: BP 118/78
[2017-10-22] MEDS: RisperiDONE 3 MG TABLET PO SCH (20:41)
[2017-10-22] MEDS: LITHIUM CARBONATE 450 MG ER TABLET PO SCH (20:41)
[2017-10-23 00:20] VITALS: BP 117/72
[2017-10-23] MEDS: LORazepam 2 MG TABLET PO PRN ×3 (00:21→16:19)
[2017-10-23] MEDS: ZOLPIDEM TARTRATE 10 MG TABLET PO PRN (00:21)
[2017-10-23 08:00] VITALS: BP 112/64
[2017-10-23] MEDS: CITALOPRAM HYDROBROMIDE 10 MG TABLET PO SCH (08:55)
[2017-10-23] MEDS: HALOPERIDOL 5 MG TABLET PO PRN ×2 (08:55→16:19)
[2017-10-23 16:00] VITALS: BP 111/62
[2017-10-23] MEDS: LITHIUM CARBONATE 450 MG ER TABLET PO SCH (20:31)
[2017-10-23] MEDS: RisperiDONE 3 MG TABLET PO SCH (20:31)
[2017-10-24 06:28] VITALS: BP 115/68
[2017-10-24 08:10] VITALS: BP 105/60
[2017-10-24] MEDS: HALOPERIDOL 5 MG TABLET PO PRN ×2 (08:57→16:46)
[2017-10-24] MEDS: CITALOPRAM HYDROBROMIDE 10 MG TABLET PO SCH (08:57)
[2017-10-24] MEDS: LORazepam 2 MG TABLET PO PRN (13:57)
[2017-10-24 16:46] VITALS: BP 112/63
[2017-10-24] MEDS: ZOLPIDEM TARTRATE 10 MG TABLET PO PRN (20:53)
[2017-10-24] MEDS: RisperiDONE 3 MG TABLET PO SCH (20:53)
[2017-10-24] MEDS: LITHIUM CARBONATE 450 MG ER TABLET PO SCH (20:53)
[2017-10-25 06:02] VITALS: BP 112/61
[2017-10-25 08:00] VITALS: BP 112/67
[2017-10-25] MEDS: CITALOPRAM HYDROBROMIDE 10 MG TABLET PO SCH (09:11)
[2017-10-25] MEDS: LORazepam 2 MG TABLET PO PRN ×2 (09:54→16:35)
[2017-10-25 16:00] VITALS: BP 107/65
[2017-10-25] MEDS: HALOPERIDOL 5 MG TABLET PO PRN (16:35)
[2017-10-25] MEDS: LITHIUM CARBONATE 450 MG ER TABLET PO SCH (20:10)
[2017-10-25] MEDS: RisperiDONE 3 MG TABLET PO SCH (20:10)
[2017-10-25] MEDS: ZOLPIDEM TARTRATE 10 MG TABLET PO PRN (20:10)
[2017-10-26 06:22] VITALS: BP 108/68
[2017-10-26 08:26] VITALS: BP 108/64
[2017-10-26] MEDS: CITALOPRAM HYDROBROMIDE 10 MG TABLET PO SCH (08:44)
[2017-10-26] MEDS: LORazepam 2 MG TABLET PO PRN (14:00)
[2017-10-26] MEDS: HALOPERIDOL 5 MG TABLET PO PRN (14:00)
[2017-10-26 16:06] VITALS: BP 139/85
[2017-10-26] MEDS: LITHIUM CARBONATE 450 MG ER TABLET PO SCH (20:25)
[2017-10-27] MEDS: LORazepam 2 MG TABLET PO PRN ×2 (00:07→11:41)
[2017-10-27] MEDS: ZOLPIDEM TARTRATE 10 MG TABLET PO PRN (00:07)
[2017-10-27 02:36] VITALS: BP 118/76
[2017-10-27 08:06] VITALS: BP 110/64
[2017-10-27] MEDS: CITALOPRAM HYDROBROMIDE 10 MG TABLET PO SCH (08:41)
[2017-10-27] MEDS: HALOPERIDOL 5 MG TABLET PO PRN (11:41)
[2017-10-27 16:00] VITALS: BP 108/67
[2017-10-27] MEDS: LITHIUM CARBONATE 450 MG ER TABLET PO SCH (20:26)
[2017-10-28 00:15] VITALS: BP 114/68
[2017-10-28] MEDS: ZOLPIDEM TARTRATE 10 MG TABLET PO PRN (00:19)
[2017-10-28] MEDS: LORazepam 2 MG TABLET PO PRN ×2 (00:19→11:04)
[2017-10-28 08:07] VITALS: BP 108/64
[2017-10-28] MEDS: CITALOPRAM HYDROBROMIDE 10 MG TABLET PO SCH (08:36)
[2017-10-28] MEDS: HALOPERIDOL 5 MG TABLET PO PRN (11:04)
[2017-10-28 16:00] VITALS: BP 114/69
[2017-10-28] MEDS: LITHIUM CARBONATE 450 MG ER TABLET PO SCH (21:06)
[2017-10-29 00:44] VITALS: BP 119/84
[2017-10-29] MEDS: ZOLPIDEM TARTRATE 10 MG TABLET PO PRN ×2 (00:48→20:24)
[2017-10-29 08:05] VITALS: BP 112/68
[2017-10-29] MEDS: CITALOPRAM HYDROBROMIDE 10 MG TABLET PO SCH (08:46)
[2017-10-29] MEDS: HALOPERIDOL 5 MG TABLET PO PRN ×2 (08:46→16:41)
[2017-10-29] MEDS: LORazepam 2 MG TABLET PO PRN ×2 (08:46→12:50)
[2017-10-29 16:00] VITALS: BP 109/68
[2017-10-29] MEDS: LITHIUM CARBONATE 450 MG ER TABLET PO SCH (20:24)
[2017-10-30 00:21] VITALS: BP 101/61
[2017-10-30 08:32] VITALS: BP 125/70
[2017-10-30] MEDS: LORazepam 2 MG TABLET PO PRN ×2 (08:48→16:50)
[2017-10-30] MEDS: CITALOPRAM HYDROBROMIDE 10 MG TABLET PO SCH (08:48)
[2017-10-30] MEDS: HALOPERIDOL 5 MG TABLET PO PRN (08:48)
[2017-10-30 16:08] VITALS: BP 108/63
[2017-10-30] MEDS: LITHIUM CARBONATE 450 MG ER TABLET PO SCH (20:03)
[2017-10-30] MEDS: ZOLPIDEM TARTRATE 10 MG TABLET PO PRN (20:30)
[2017-10-31 06:23] VITALS: BP 114/77
[2017-10-31 08:06] VITALS: BP 112/62
[2017-10-31] MEDS: CITALOPRAM HYDROBROMIDE 10 MG TABLET PO SCH (08:33)
[2017-10-31] MEDS: HALOPERIDOL 5 MG TABLET PO PRN (10:44)
[2017-10-31] MEDS: LORazepam 2 MG TABLET PO PRN (10:44)
[2017-10-31 16:27] VITALS: BP 122/71
[2017-10-31] MEDS: LITHIUM CARBONATE 450 MG ER TABLET PO SCH (20:20)
[2017-11-01 00:20] VITALS: BP 125/68
[2017-11-01] MEDS: ZOLPIDEM TARTRATE 10 MG TABLET PO PRN (00:27)
[2017-11-01] MEDS: LORazepam 2 MG TABLET PO PRN ×2 (00:27→10:42)
[2017-11-01 08:06] VITALS: BP 137/60
[2017-11-01] MEDS: CITALOPRAM HYDROBROMIDE 10 MG TABLET PO SCH (08:35)
[2017-11-01] MEDS: HALOPERIDOL 5 MG TABLET PO PRN (10:42)
[2017-11-01 17:01] VITALS: BP 103/63
[2017-11-01] MEDS: LITHIUM CARBONATE 450 MG ER TABLET PO SCH (20:20)
[2017-11-02 04:17] VITALS: BP 105/60
[2017-11-02] MEDS: LORazepam 2 MG TABLET PO PRN ×2 (07:06→14:34)
[2017-11-02 08:07] VITALS: BP 118/76
[2017-11-02] MEDS: CITALOPRAM HYDROBROMIDE 10 MG TABLET PO SCH (08:18)
[2017-11-02 11:35] VITALS: BP 119/73
[2017-11-02 16:28] VITALS: BP 122/78
[2017-11-02] MEDS: LITHIUM CARBONATE 450 MG ER TABLET PO SCH (20:13)
[2017-11-03 00:26] VITALS: BP 120/76
[2017-11-03] MEDS: ZOLPIDEM TARTRATE 10 MG TABLET PO PRN (01:27)
[2017-11-03] MEDS: LORazepam 2 MG TABLET PO PRN ×3 (01:27→15:57)
[2017-11-03 08:09] VITALS: BP 109/65
[2017-11-03] MEDS: CITALOPRAM HYDROBROMIDE 10 MG TABLET PO SCH (08:54)
[2017-11-03 16:03] VITALS: BP 121/77
[2017-11-03] MEDS: LITHIUM CARBONATE 450 MG ER TABLET PO SCH (20:09)
[2017-11-04 00:25] VITALS: BP 104/61
[2017-11-04 08:19] LABS: ANION GAP 9 mmol/L (8-16); CALCIUM, TOTAL 9.6 mg/dL (8.8-10.5); CARBON DIOXIDE 28 mmol/L (22-29); CHLORIDE 102 mmol/L (98-107); CREATININE 0.93 mg/dL (0.60-1.30); GLOMERULAR FILTR. RATE CALC > 60 mL/min (>60); GLUCOSE,RANDOM 84 mg/dL (70-110); POTASSIUM 4.3 mmol/L (3.5-5.1); SODIUM SERUM 139 mmol/L (136-145); UREA NITROGEN, BLOOD 13 mg/dL (7-18)
[2017-11-04 08:30] VITALS: BP 121/62
[2017-11-04] MEDS: LORazepam 2 MG TABLET PO PRN ×2 (08:48→15:38)
[2017-11-04] MEDS: CITALOPRAM HYDROBROMIDE 10 MG TABLET PO SCH (08:48)
[2017-11-04] MEDS: HALOPERIDOL 5 MG TABLET PO PRN (15:38)
[2017-11-04 16:00] VITALS: BP 114/71
[2017-11-04] MEDS: LITHIUM CARBONATE 450 MG ER TABLET PO SCH (20:08)
[2017-11-04] MEDS: ZOLPIDEM TARTRATE 10 MG TABLET PO PRN (21:00)
[2017-11-05 00:23] VITALS: BP 104/61
[2017-11-05 08:43] VITALS: BP 105/67
[2017-11-05] MEDS: CITALOPRAM HYDROBROMIDE 10 MG TABLET PO SCH (09:21)
[2017-11-05] MEDS: LORazepam 2 MG TABLET PO PRN ×3 (09:55→17:12)
[2017-11-05 16:06] VITALS: BP 122/80
[2017-11-05] MEDS: LITHIUM CARBONATE 450 MG ER TABLET PO SCH (20:05)
[2017-11-05] MEDS: ZOLPIDEM TARTRATE 10 MG TABLET PO PRN (21:58)
[2017-11-06 00:09] VITALS: BP 102/68
[2017-11-06 08:06] VITALS: BP 121/76
[2017-11-06] MEDS: CITALOPRAM HYDROBROMIDE 10 MG TABLET PO SCH (08:42)
[2017-11-06] MEDS: LORazepam 2 MG TABLET PO PRN ×2 (08:43→16:04)
[2017-11-06 16:10] VITALS: BP 119/70
[2017-11-06] MEDS: LITHIUM CARBONATE 450 MG ER TABLET PO SCH (20:40)
[2017-11-06] MEDS: ZOLPIDEM TARTRATE 10 MG TABLET PO PRN (21:01)
[2017-11-07 06:34] VITALS: BP 109/68
[2017-11-07] MEDS: CITALOPRAM HYDROBROMIDE 10 MG TABLET PO SCH (08:07)
[2017-11-07 08:10] VITALS: BP 150/77
[2017-11-07] MEDS: LORazepam 2 MG TABLET PO PRN ×2 (09:20→14:00)
[2017-11-07 10:08] VITALS: BP 119/73
[2017-11-07 16:07] VITALS: BP 117/73
[2017-11-07] MEDS: LITHIUM CARBONATE 450 MG ER TABLET PO SCH (20:08)
[2017-11-07] MEDS: ZOLPIDEM TARTRATE 10 MG TABLET PO PRN (22:30)
[2017-11-08 06:20] VITALS: BP 110/60
[2017-11-08] MEDS: CITALOPRAM HYDROBROMIDE 10 MG TABLET PO SCH (07:58)
[2017-11-08 08:04] VITALS: BP 122/70
[2017-11-08] MEDS ORDERED: PALIPERIDONE PALMITATE 234 MG/1.5 ML SYRINGE IM SCH (09:00)
[2017-11-08] MEDS: LORazepam 2 MG TABLET PO PRN ×2 (09:22→14:02)
[2017-11-08 16:00] VITALS: BP 118/72
[2017-11-08] MEDS: LITHIUM CARBONATE 450 MG ER TABLET PO SCH (20:08)
[2017-11-08] MEDS: ZOLPIDEM TARTRATE 10 MG TABLET PO PRN (22:13)
[2017-11-09 04:21] VITALS: BP 104/60
[2017-11-09] MEDS: CITALOPRAM HYDROBROMIDE 10 MG TABLET PO SCH (08:10)
[2017-11-09 08:42] VITALS: BP 115/67
[2017-11-09] MEDS: LORazepam 2 MG TABLET PO PRN ×2 (08:49→15:54)
[2017-11-09 16:05] VITALS: BP 118/69
[2017-11-09] MEDS: LITHIUM CARBONATE 450 MG ER TABLET PO SCH (20:17)
[2017-11-10 04:30] VITALS: BP 120/81
[2017-11-10 08:21] VITALS: BP 122/71
[2017-11-10] MEDS: CITALOPRAM HYDROBROMIDE 10 MG TABLET PO SCH (08:26)
[2017-11-10 12:01] VITALS: BP 124/76
[2017-11-10] MEDS: LORazepam 2 MG TABLET PO PRN ×2 (12:01→16:05)
[2017-11-10 16:22] VITALS: BP 125/75
[2017-11-10] MEDS: LITHIUM CARBONATE 450 MG ER TABLET PO SCH (20:41)
[2017-11-10] MEDS: ZOLPIDEM TARTRATE 10 MG TABLET PO PRN (20:42)
[2017-11-11 06:18] VITALS: BP 120/82
[2017-11-11 08:41] VITALS: BP 103/65
[2017-11-11] MEDS: CITALOPRAM HYDROBROMIDE 10 MG TABLET PO SCH (09:34)
[2017-11-11] MEDS: LORazepam 2 MG TABLET PO PRN (10:17)
[2017-11-11] MEDS ORDERED: LITH450CRT PO ×2 (13:05→13:45)
[2017-11-11] MEDS ORDERED: CITA10TA68 PO ×2 (13:05→13:45)
[2017-11-11] MEDS ORDERED: PALI234D IM (13:45)
== END 2017-11-11 17:54 | disposition home or self-care (01) | DRG 750 ==
LOC: B3A 17:22 → B2S 11-02 12:33
DX: F20.0 Paranoid schizophrenia (principal); E87.1 Hypo-osmolality and hyponatremia; F10.10 Alcohol abuse, uncomplicated; F15.10 Other stimulant abuse, uncomplicated; F17.210 Nicotine dependence, cigarettes, uncomplicated; G47.00 Insomnia, unspecified; Z79.899 Other long term (current) drug therapy; Z71.41 Alcohol abuse counseling and surveillance of alcoholic; Z71.51 Drug abuse counseling and surveillance of drug abuser
CPT/HCPCS: 83036; 84439; 84443; 87081

== ENCOUNTER 2017-11-16 17:14 | Inpatient (IN) | payer MEDICAID ==
[~2017-11-16] VITALS: Ht 180.3 cm; Wt 90.7 kg
[~2017-11-16 17:14] MED LIST changes: +CITA10TA68 PO; -LITH300CRT PO; +LITH450CRT PO; +PALI234D IM; -RISP3 PO
[2017-11-16 18:42] VITALS: BP 148/84
[2017-11-16] MEDS: LORazepam 2 MG TABLET PO PRN (19:21)
[2017-11-16] MEDS: HALOPERIDOL 5 MG TABLET PO PRN (19:21)
[2017-11-16] MEDS ORDERED: LOPERAMIDE HCL 2 MG CAPSULE PO PRN (20:00)
[2017-11-16] MEDS ORDERED: ACETAMINOPHEN 325 MG TABLET PO PRN (20:00)
[2017-11-16] MEDS ORDERED: IBUPROFEN 400 MG TABLET PO PRN (20:00)
[2017-11-16] MEDS ORDERED: PETROLATUM,WHITE 71 GM JELLY TP PRN (20:00)
[2017-11-16] MEDS ORDERED: CloNIDine HCL 0.1 MG TABLET PO PRN (20:00)
[2017-11-16] MEDS ORDERED: DOCUSATE SODIUM 100 MG CAPSULE PO PRN (20:00)
[2017-11-16] MEDS ORDERED: ALBUTEROL SULFATE HFA 90 MCG/PUFF 8 GM INHALER IH PRN (20:00)
[2017-11-16] MEDS ORDERED: MAG HYDROX/AL HYDROX/SIMETH ES 30 ML SUSPENSION UDCUP PO PRN (20:00)
[2017-11-16] MEDS ORDERED: GuaiFENesin/D-METHORPHAN [SUGAR-FREE] 200-20MG/10 ML SYRUP UDCUP PO PRN (20:00)
[2017-11-16] MEDS ORDERED: ONDANSETRON HCL 4 MG TABLET PO PRN (20:00)
[2017-11-16] MEDS ORDERED: MAGNESIUM HYDROXIDE SUSPENSION 30 ML UDCUP PO PRN (20:00)
[2017-11-16] MEDS: LITHIUM CARBONATE 300 MG CAPSULE PO SCH (20:33)
[2017-11-17 06:10] VITALS: BP 138/67
[2017-11-17 08:05] VITALS: BP 116/64
[2017-11-17] MEDS: CITALOPRAM HYDROBROMIDE 10 MG TABLET PO SCH (08:24)
[2017-11-17] MEDS: HALOPERIDOL 5 MG TABLET PO PRN ×2 (08:37→16:30)
[2017-11-17] MEDS: LORazepam 2 MG TABLET PO PRN ×2 (08:37→16:30)
[2017-11-17 09:13] LABS: BASOPHILS % (AUTO) 0.3 % (0.0-2.0); HEMATOCRIT 39.6 % (41-53); HEMOGLOBIN 13.8 g/dL (13.5-17.5); LYMPHOCYTES # (AUTO) 1.4 K/uL (1.0-4.8); LYMPHOCYTES % (AUTO) 20.3 % (22.0-44.0); MEAN CORPUSCULAR HEMOGLOBIN 31.7 pg (26.0-34.0); MEAN CORPUSCULAR HGB CONC 34.9 G/dL (31.0-37.0); MEAN CORPUSCULAR VOLUME 91 fL (80-100); MONOCYTES # (AUTO) 0.5 K/uL (0.1-1.0); MONOCYTES % (AUTO) 7.2 % (2.0-9.0); NEUTROPHILS # (AUTO) 4.8 K/uL (1.8-7.7); NEUTROPHILS % (AUTO) 69.2 % (40.0-70.0); PLATELET COUNT (AUTO) 209 K/uL (150-450); RED BLOOD CELL COUNT(AUTO) 4.36 MIL/uL (4.50-5.90); RED CELL DISTRIBUTION WIDTH 12.5 % (11.5-14.5)
[2017-11-17 09:37] LABS: ALANINE AMINOTRANSFERASE 51 U/L (12-78); ALBUMIN 3.4 g/dL (3.4-5.0); ALKALINE PHOSPHATASE 71 U/L (46-116); ANION GAP 8 mmol/L (8-16); ASPARTATE AMINOTRANSFERASE 72 U/L (15-37); BILIRUBIN,TOTAL 0.6 mg/dL (0.1-1.0); CALCIUM, TOTAL 8.9 mg/dL (8.8-10.5); CARBON DIOXIDE 25 mmol/L (22-29); CHLORIDE 106 mmol/L (98-107); CHOL/HDL RATIO 2.8 (4.2-7.3); CHOLESTEROL 143 mg/dL (131-200); CREATININE 0.65 mg/dL (0.60-1.30); FREE T4 (FREE THYROXINE) 0.91 ng/dL (0.76-1.46); GLOMERULAR FILTR. RATE CALC > 60 mL/min (>60); GLUCOSE,RANDOM 95 mg/dL (70-110); HDL CHOLESTEROL 52 mg/dL (40-60); LDL CHOL (CALC.) 81 mg/dL (0-130); POTASSIUM 4.1 mmol/L (3.5-5.1); SODIUM SERUM 139 mmol/L (136-145); THYROID STIMULATING HORMONE 1.66 uIU/mL (0.36-3.74); TOTAL PROTEIN, SERUM 7.1 g/dL (6.4-8.2); TRIGLYCERIDES 52 mg/dL (15-150); UREA NITROGEN, BLOOD 9 mg/dL (7-18)
[2017-11-17] MEDS: OLANZapine 5 MG RAPDIS TABLET PO SCH ×2 (10:49→16:30)
[2017-11-17 16:16] VITALS: BP 132/82
[2017-11-17] MEDS: ZOLPIDEM TARTRATE 10 MG TABLET PO PRN (20:12)
[2017-11-17] MEDS: LITHIUM CARBONATE 300 MG CAPSULE PO SCH (20:12)
[2017-11-18 06:49] VITALS: BP 108/68
[2017-11-18 08:03] VITALS: BP 112/76
[2017-11-18] MEDS: OLANZapine 5 MG RAPDIS TABLET PO SCH (08:22)
[2017-11-18] MEDS: LORazepam 2 MG TABLET PO PRN ×2 (08:22→17:04)
[2017-11-18] MEDS: HALOPERIDOL 5 MG TABLET PO PRN ×2 (08:22→17:04)
[2017-11-18] MEDS: CITALOPRAM HYDROBROMIDE 10 MG TABLET PO SCH (08:22)
[2017-11-18 16:00] VITALS: BP 109/69
[2017-11-18] MEDS: LITHIUM CARBONATE 300 MG CAPSULE PO SCH (20:48)
[2017-11-18] MEDS: ZOLPIDEM TARTRATE 10 MG TABLET PO PRN (20:48)
[2017-11-19 06:39] VITALS: BP 104/63
[2017-11-19 08:03] VITALS: BP 112/64
[2017-11-19] MEDS: CITALOPRAM HYDROBROMIDE 10 MG TABLET PO SCH (08:21)
[2017-11-19 16:02] VITALS: BP 121/61
[2017-11-19] MEDS: HALOPERIDOL 5 MG TABLET PO PRN (16:11)
[2017-11-19] MEDS: LORazepam 2 MG TABLET PO PRN (16:11)
[2017-11-19] MEDS: LITHIUM CARBONATE 300 MG CAPSULE PO SCH (20:14)
[2017-11-20 06:35] VITALS: BP 108/68
[2017-11-20 08:02] VITALS: BP 116/60
[2017-11-20 09:00] LABS: AMPHET/METH SCREEN,URINE NEGATIVE (NEGATIVE); BARBITURATE SCREEN, URINE NEGATIVE (NEGATIVE); BENZODIAZEPINES SCREEN,URINE NEGATIVE (NEGATIVE); CANNABINOID SCREEN,URINE NEGATIVE (NEGATIVE); COCAINE SCREEN,URINE NEGATIVE (NEGATIVE); METHADONE SCREEN, URINE NEGATIVE (NEGATIVE); OPIATE SCREEN,URINE NEGATIVE (NEGATIVE)
[2017-11-20 09:05] LABS: PHENCYCLIDINE SCREEN,URINE NEGATIVE (NEGATIVE)
[2017-11-20] MEDS: LORazepam 2 MG TABLET PO PRN ×2 (09:08→16:26)
[2017-11-20] MEDS: CITALOPRAM HYDROBROMIDE 10 MG TABLET PO SCH (09:08)
[2017-11-20] MEDS: HALOPERIDOL 5 MG TABLET PO PRN ×2 (09:08→16:26)
[2017-11-20 09:29] LABS: APPEARANCE,URINE CLEAR (CLEAR); BILIRUBIN,URINE NEGATIVE (NEGATIVE); GLUCOSE, URINE (UA) NEGATIVE (NEGATIVE); KETONES,URINE NEGATIVE (NEGATIVE); LEUKOCYTE ESTERASE ,URINE NEGATIVE (NEGATIVE); NITRATE,URINE NEGATIVE (NEGATIVE); OCCULT BLOOD,URINE NEGATIVE (NEGATIVE); PROTEIN,URINE NEGATIVE (NEGATIVE)
[2017-11-20 16:13] VITALS: BP 118/72
[2017-11-20] MEDS: LITHIUM CARBONATE 300 MG CAPSULE PO SCH (20:16)
[2017-11-21 06:27] VITALS: BP 117/65
[2017-11-21 08:00] VITALS: BP 107/69
[2017-11-21] MEDS: LORazepam 2 MG TABLET PO PRN ×3 (08:15→18:48)
[2017-11-21] MEDS: HALOPERIDOL 5 MG TABLET PO PRN ×3 (08:15→18:48)
[2017-11-21] MEDS: CITALOPRAM HYDROBROMIDE 10 MG TABLET PO SCH (08:15)
[2017-11-21 16:00] VITALS: BP 112/73
[2017-11-21] MEDS: LITHIUM CARBONATE 300 MG CAPSULE PO SCH (20:29)
[2017-11-21] MEDS: ZOLPIDEM TARTRATE 10 MG TABLET PO PRN (20:29)
[2017-11-22 06:18] VITALS: BP 110/69
[2017-11-22 08:08] VITALS: BP 120/63
[2017-11-22] MEDS: CITALOPRAM HYDROBROMIDE 10 MG TABLET PO SCH (08:20)
[2017-11-22] MEDS: HALOPERIDOL 5 MG TABLET PO PRN ×2 (10:43→16:49)
[2017-11-22] MEDS: LORazepam 2 MG TABLET PO PRN ×2 (10:43→16:49)
[2017-11-22 17:03] VITALS: BP 120/70
[2017-11-22] MEDS: LITHIUM CARBONATE 300 MG CAPSULE PO SCH (20:30)
[2017-11-23 06:42] VITALS: BP 117/71
[2017-11-23 08:04] VITALS: BP 111/62
[2017-11-23] MEDS: CITALOPRAM HYDROBROMIDE 10 MG TABLET PO SCH (08:33)
[2017-11-23] MEDS: NICOTINE 14 MG/24 HOUR PATCH TD PRN (11:12)
[2017-11-23] MEDS: LORazepam 2 MG TABLET PO PRN ×2 (12:45→17:03)
[2017-11-23] MEDS: HALOPERIDOL 5 MG TABLET PO PRN (12:45)
[2017-11-23 16:43] VITALS: BP 110/80
[2017-11-23] MEDS: LITHIUM CARBONATE 300 MG CAPSULE PO SCH (20:58)
[2017-11-24 06:08] VITALS: BP 112/84
[2017-11-24] MEDS: CITALOPRAM HYDROBROMIDE 10 MG TABLET PO SCH (08:16)
[2017-11-24 08:34] VITALS: BP 107/67
[2017-11-24] MEDS: NICOTINE 14 MG/24 HOUR PATCH TD PRN (09:28)
[2017-11-24] MEDS: LORazepam 2 MG TABLET PO PRN ×2 (12:30→16:35)
[2017-11-24] MEDS: HALOPERIDOL 5 MG TABLET PO PRN (16:00)
[2017-11-24 16:16] VITALS: BP 119/78
[2017-11-24] MEDS: LITHIUM CARBONATE 300 MG CAPSULE PO SCH (20:27)
[2017-11-25 07:03] VITALS: BP 116/73
[2017-11-25 08:36] VITALS: BP 119/66
[2017-11-25] MEDS: CITALOPRAM HYDROBROMIDE 10 MG TABLET PO SCH (09:28)
[2017-11-25] MEDS: NICOTINE 14 MG/24 HOUR PATCH TD PRN (09:31)
[2017-11-25] MEDS: LORazepam 2 MG TABLET PO PRN ×2 (11:57→17:13)
[2017-11-25 16:41] VITALS: BP 121/79
[2017-11-25] MEDS: LITHIUM CARBONATE 300 MG CAPSULE PO SCH (20:51)
[2017-11-26 01:25] VITALS: BP 103/67
[2017-11-26 08:03] VITALS: BP 120/74
[2017-11-26] MEDS: CITALOPRAM HYDROBROMIDE 10 MG TABLET PO SCH (09:13)
[2017-11-26] MEDS: NICOTINE 14 MG/24 HOUR PATCH TD PRN (10:25)
[2017-11-26] MEDS ORDERED: TUBERCULIN, PURIFIED PROTEIN DERIVATIVE 5 TU/0.1 ML SYG ID ONE (13:30)
[2017-11-26] MEDS: LORazepam 2 MG TABLET PO PRN (14:50)
[2017-11-26 16:06] VITALS: BP 121/85
[2017-11-26] MEDS: HALOPERIDOL 5 MG TABLET PO PRN (17:05)
[2017-11-26] MEDS: LITHIUM CARBONATE 300 MG CAPSULE PO SCH (21:12)
[2017-11-26] MEDS: ZOLPIDEM TARTRATE 10 MG TABLET PO PRN (21:12)
[2017-11-27 06:33] VITALS: BP 109/58
[2017-11-27 08:26] VITALS: BP 121/85
[2017-11-27] MEDS: LORazepam 2 MG TABLET PO PRN ×2 (08:40→14:46)
[2017-11-27] MEDS: CITALOPRAM HYDROBROMIDE 10 MG TABLET PO SCH (08:40)
[2017-11-27] MEDS: NICOTINE 14 MG/24 HOUR PATCH TD PRN (08:51)
[2017-11-27 16:09] VITALS: BP 127/84
[2017-11-27] MEDS: OLANZapine 5 MG RAPDIS TABLET PO PRN (17:20)
[2017-11-27] MEDS: LITHIUM CARBONATE 300 MG CAPSULE PO SCH (21:21)
[2017-11-28 06:31] VITALS: BP 122/73
[2017-11-28 08:08] VITALS: BP 104/63
[2017-11-28] MEDS: CITALOPRAM HYDROBROMIDE 10 MG TABLET PO SCH (09:27)
[2017-11-28 12:47] VITALS: BP 123/65
[2017-11-28] MEDS: LORazepam 2 MG TABLET PO PRN ×2 (12:47→16:56)
[2017-11-28 16:03] VITALS: BP 122/70
[2017-11-28] MEDS: OLANZapine 5 MG RAPDIS TABLET PO PRN (17:10)
[2017-11-28] MEDS: LITHIUM CARBONATE 300 MG CAPSULE PO SCH (20:29)
[2017-11-29] VITALS: BP 100/62
[2017-11-29 08:25] VITALS: BP 103/58
[2017-11-29] MEDS: CITALOPRAM HYDROBROMIDE 10 MG TABLET PO SCH (09:57)
[2017-11-29] MEDS: LORazepam 2 MG TABLET PO PRN ×2 (11:04→14:55)
[2017-11-29] MEDS: NICOTINE 14 MG/24 HOUR PATCH TD PRN (11:07)
[2017-11-29 16:20] VITALS: BP 113/65
[2017-11-29] MEDS: OLANZapine 5 MG RAPDIS TABLET PO PRN (17:13)
[2017-11-29] MEDS: LITHIUM CARBONATE 300 MG CAPSULE PO SCH (20:32)
[2017-11-30 05:53] VITALS: BP 120/81
[2017-11-30] MEDS: CITALOPRAM HYDROBROMIDE 10 MG TABLET PO SCH (08:41)
[2017-11-30 08:43] VITALS: BP 109/61
[2017-11-30] MEDS: NICOTINE 14 MG/24 HOUR PATCH TD PRN (11:10)
[2017-11-30 16:10] VITALS: BP 119/72
[2017-11-30] MEDS: LORazepam 2 MG TABLET PO PRN (16:10)
[2017-11-30] MEDS: OLANZapine 5 MG RAPDIS TABLET PO PRN (17:24)
[2017-11-30] MEDS: LITHIUM CARBONATE 300 MG CAPSULE PO SCH (20:12)
[2017-12-01 03:14] VITALS: BP 121/68
[2017-12-01 08:04] VITALS: BP 114/59
[2017-12-01] MEDS: CITALOPRAM HYDROBROMIDE 10 MG TABLET PO SCH (08:08)
[2017-12-01] MEDS: NICOTINE 14 MG/24 HOUR PATCH TD PRN (10:32)
[2017-12-01] MEDS: LORazepam 2 MG TABLET PO PRN (13:34)
[2017-12-01] MEDS: OLANZapine 5 MG RAPDIS TABLET PO PRN (16:24)
[2017-12-01 17:05] VITALS: BP 112/71
[2017-12-01] MEDS: LITHIUM CARBONATE 300 MG CAPSULE PO SCH (20:49)
[2017-12-02 00:26] VITALS: BP 110/60
[2017-12-02 08:05] VITALS: BP 109/64
[2017-12-02] MEDS: CITALOPRAM HYDROBROMIDE 10 MG TABLET PO SCH (08:33)
[2017-12-02] MEDS: NICOTINE 14 MG/24 HOUR PATCH TD PRN (08:35)
[2017-12-02] MEDS: LORazepam 2 MG TABLET PO PRN (12:46)
[2017-12-02] MEDS: OLANZapine 5 MG RAPDIS TABLET PO PRN (14:54)
[2017-12-02 16:05] VITALS: BP 117/70
[2017-12-02] MEDS: LITHIUM CARBONATE 300 MG CAPSULE PO SCH (20:04)
[2017-12-03 04:13] VITALS: BP 110/68
[2017-12-03 08:18] VITALS: BP 122/75
[2017-12-03] MEDS: CITALOPRAM HYDROBROMIDE 10 MG TABLET PO SCH (08:18)
[2017-12-03] MEDS: OLANZapine 5 MG RAPDIS TABLET PO PRN (09:59)
[2017-12-03] MEDS: NICOTINE 14 MG/24 HOUR PATCH TD PRN (10:00)
[2017-12-03] MEDS: LORazepam 2 MG TABLET PO PRN (13:28)
[2017-12-03 16:01] VITALS: BP 120/76
[2017-12-03] MEDS: LITHIUM CARBONATE 300 MG CAPSULE PO SCH (20:09)
[2017-12-04 02:51] VITALS: BP 118/70
[2017-12-04 08:00] VITALS: BP 106/65
[2017-12-04] MEDS: CITALOPRAM HYDROBROMIDE 10 MG TABLET PO SCH (08:34)
[2017-12-04] MEDS: NICOTINE 14 MG/24 HOUR PATCH TD PRN (08:45)
[2017-12-04] MEDS: LORazepam 2 MG TABLET PO PRN (10:21)
[2017-12-04] MEDS: OLANZapine 5 MG RAPDIS TABLET PO PRN ×2 (11:31→16:46)
[2017-12-04 17:13] VITALS: BP 115/78
[2017-12-04] MEDS: LITHIUM CARBONATE 300 MG CAPSULE PO SCH (20:03)
[2017-12-04] MEDS: ZOLPIDEM TARTRATE 10 MG TABLET PO PRN (22:52)
[2017-12-05 06:46] VITALS: BP 102/67
[2017-12-05 08:03] VITALS: BP 105/60
[2017-12-05] MEDS: CITALOPRAM HYDROBROMIDE 10 MG TABLET PO SCH (09:29)
[2017-12-05] MEDS: LORazepam 2 MG TABLET PO PRN ×2 (09:43→17:16)
[2017-12-05] MEDS: OLANZapine 5 MG RAPDIS TABLET PO PRN ×2 (09:43→17:16)
[2017-12-05 16:05] VITALS: BP 106/64
[2017-12-05 17:14] VITALS: BP 122/82
[2017-12-05] MEDS: LITHIUM CARBONATE 300 MG CAPSULE PO SCH (20:00)
[2017-12-06 06:43] VITALS: BP 118/70
[2017-12-06 08:20] VITALS: BP 113/68
[2017-12-06] MEDS: CITALOPRAM HYDROBROMIDE 10 MG TABLET PO SCH (09:52)
[2017-12-06] MEDS: PALIPERIDONE PALMITATE 234 MG/1.5 ML SYRINGE IM SCH (10:00)
[2017-12-06] MEDS: OLANZapine 5 MG RAPDIS TABLET PO PRN (14:40)
[2017-12-06] MEDS: LORazepam 2 MG TABLET PO PRN (14:40)
[2017-12-06 16:16] VITALS: BP 118/77
[2017-12-06] MEDS: LITHIUM CARBONATE 300 MG CAPSULE PO SCH (20:04)
[2017-12-07 05:36] VITALS: BP 120/81
[2017-12-07] MEDS: CITALOPRAM HYDROBROMIDE 10 MG TABLET PO SCH (08:25)
[2017-12-07] MEDS: LORazepam 2 MG TABLET PO PRN ×2 (08:50→16:14)
[2017-12-07 09:27] VITALS: BP 118/63
[2017-12-07] MEDS: OLANZapine 5 MG RAPDIS TABLET PO PRN ×2 (09:29→17:13)
[2017-12-07 16:08] VITALS: BP 119/66
[2017-12-07] MEDS: LITHIUM CARBONATE 300 MG CAPSULE PO SCH (20:11)
[2017-12-08 00:52] VITALS: BP 110/67
[2017-12-08 08:44] VITALS: BP 113/61
[2017-12-08] MEDS: CITALOPRAM HYDROBROMIDE 10 MG TABLET PO SCH (08:54)
[2017-12-08] MEDS: OLANZapine 5 MG RAPDIS TABLET PO PRN ×2 (10:21→14:45)
[2017-12-08] MEDS: LORazepam 2 MG TABLET PO PRN (14:45)
[2017-12-08 16:06] VITALS: BP 118/76
[2017-12-08] MEDS: LITHIUM CARBONATE 300 MG CAPSULE PO SCH (20:22)
[2017-12-09 00:27] VITALS: BP 120/86
[2017-12-09] MEDS: CITALOPRAM HYDROBROMIDE 10 MG TABLET PO SCH (08:29)
[2017-12-09] MEDS: LORazepam 2 MG TABLET PO PRN ×2 (08:38→16:32)
[2017-12-09] MEDS: OLANZapine 5 MG RAPDIS TABLET PO PRN ×2 (08:41→16:32)
[2017-12-09 08:42] VITALS: BP 113/60
[2017-12-09] MEDS: NICOTINE 14 MG/24 HOUR PATCH TD PRN (08:43)
[2017-12-09 16:29] VITALS: BP 132/68
[2017-12-09] MEDS: LITHIUM CARBONATE 300 MG CAPSULE PO SCH (20:02)
[2017-12-10 05:53] VITALS: BP 126/82
[2017-12-10] MEDS: CITALOPRAM HYDROBROMIDE 10 MG TABLET PO SCH (08:12)
[2017-12-10 08:23] VITALS: BP 119/75
[2017-12-10] MEDS: OLANZapine 5 MG RAPDIS TABLET PO PRN ×2 (10:20→16:06)
[2017-12-10 16:09] VITALS: BP 118/76
[2017-12-10] MEDS: LITHIUM CARBONATE 300 MG CAPSULE PO SCH (20:40)
[2017-12-11 06:23] VITALS: BP 113/65
[2017-12-11] MEDS: OLANZapine 5 MG RAPDIS TABLET PO PRN (06:49)
[2017-12-11] MEDS: CITALOPRAM HYDROBROMIDE 10 MG TABLET PO SCH (08:13)
[2017-12-11 08:14] VITALS: BP 108/60
[2017-12-11] MEDS: LORazepam 2 MG TABLET PO PRN ×2 (12:45→16:46)
[2017-12-11 16:13] VITALS: BP 116/83
[2017-12-11] MEDS: LITHIUM CARBONATE 300 MG CAPSULE PO SCH (20:08)
[2017-12-12 05:49] VITALS: BP 114/84
[2017-12-12 08:09] VITALS: BP 114/65
[2017-12-12] MEDS: CITALOPRAM HYDROBROMIDE 10 MG TABLET PO SCH (08:27)
[2017-12-12] MEDS: LORazepam 2 MG TABLET PO PRN ×2 (09:50→14:26)
[2017-12-12] MEDS: NICOTINE 14 MG/24 HOUR PATCH TD PRN (10:20)
[2017-12-12 16:07] VITALS: BP 122/77
[2017-12-12] MEDS: LITHIUM CARBONATE 300 MG CAPSULE PO SCH (20:18)
[2017-12-13 06:21] VITALS: BP 118/78
[2017-12-13 08:00] VITALS: BP 117/69
[2017-12-13] MEDS: CITALOPRAM HYDROBROMIDE 10 MG TABLET PO SCH (08:15)
[2017-12-13] MEDS: NICOTINE 14 MG/24 HOUR PATCH TD PRN (10:07)
[2017-12-13] MEDS: LORazepam 2 MG TABLET PO PRN ×2 (13:07→17:20)
[2017-12-13 16:01] VITALS: BP 122/79
[2017-12-13] MEDS: LITHIUM CARBONATE 300 MG CAPSULE PO SCH (20:26)
[2017-12-14 05:06] VITALS: BP 100/60
[2017-12-14] MEDS: CITALOPRAM HYDROBROMIDE 10 MG TABLET PO SCH (08:46)
[2017-12-14 08:55] VITALS: BP 102/54
[2017-12-14] MEDS: NICOTINE 14 MG/24 HOUR PATCH TD PRN (11:25)
[2017-12-14] MEDS: LORazepam 2 MG TABLET PO PRN ×2 (11:25→16:08)
[2017-12-14 16:02] VITALS: BP 124/77
[2017-12-14] MEDS: LITHIUM CARBONATE 300 MG CAPSULE PO SCH (20:03)
[2017-12-15 06:11] VITALS: BP 101/64
[2017-12-15 08:02] VITALS: BP_SYST 111; BP_SYST 121; BP_DIAS 63; BP_DIAS 79
[2017-12-15] MEDS: CITALOPRAM HYDROBROMIDE 10 MG TABLET PO SCH (08:46)
[2017-12-15] MEDS: LORazepam 2 MG TABLET PO PRN ×2 (11:08→16:06)
[2017-12-15] MEDS: NICOTINE 14 MG/24 HOUR PATCH TD PRN (11:08)
[2017-12-15 16:08] VITALS: BP 113/66
[2017-12-15] MEDS: LITHIUM CARBONATE 300 MG CAPSULE PO SCH (20:00)
[2017-12-16 01:10] VITALS: BP 105/67
[2017-12-16 08:13] VITALS: BP 123/76
[2017-12-16] MEDS: CITALOPRAM HYDROBROMIDE 10 MG TABLET PO SCH (08:34)
[2017-12-16] MEDS: NICOTINE 14 MG/24 HOUR PATCH TD PRN (08:35)
[2017-12-16] MEDS: LORazepam 2 MG TABLET PO PRN ×2 (09:16→16:38)
[2017-12-16 16:00] VITALS: BP 118/72
[2017-12-16] MEDS: LITHIUM CARBONATE 300 MG CAPSULE PO SCH (20:14)
[2017-12-17 01:24] VITALS: BP 115/62
[2017-12-17 08:20] VITALS: BP 105/55
[2017-12-17] MEDS: CITALOPRAM HYDROBROMIDE 10 MG TABLET PO SCH (08:50)
[2017-12-17] MEDS: LORazepam 2 MG TABLET PO PRN ×2 (10:57→17:08)
[2017-12-17] MEDS: NICOTINE 14 MG/24 HOUR PATCH TD PRN (12:00)
[2017-12-17 19:25] VITALS: BP 121/82
[2017-12-17] MEDS: LITHIUM CARBONATE 300 MG CAPSULE PO SCH (21:21)
[2017-12-18 01:36] VITALS: BP 109/65
[2017-12-18 08:49] VITALS: BP 107/62
[2017-12-18] MEDS: CITALOPRAM HYDROBROMIDE 10 MG TABLET PO SCH (08:59)
[2017-12-18] MEDS: LORazepam 2 MG TABLET PO PRN ×2 (08:59→14:47)
[2017-12-18] MEDS: NICOTINE 14 MG/24 HOUR PATCH TD PRN (10:01)
[2017-12-18 16:17] VITALS: BP 118/71
[2017-12-18] MEDS: LITHIUM CARBONATE 300 MG CAPSULE PO SCH (20:19)
[2017-12-18] MEDS: ZOLPIDEM TARTRATE 10 MG TABLET PO PRN (21:23)
[2017-12-19 01:00] VITALS: BP 108/60
[2017-12-19 08:19] VITALS: BP 121/73
[2017-12-19] MEDS: CITALOPRAM HYDROBROMIDE 10 MG TABLET PO SCH (08:25)
[2017-12-19] MEDS: LORazepam 2 MG TABLET PO PRN ×2 (08:26→16:47)
[2017-12-19] MEDS: NICOTINE 14 MG/24 HOUR PATCH TD PRN (10:06)
[2017-12-19 16:04] VITALS: BP 121/78
[2017-12-19] MEDS: LITHIUM CARBONATE 300 MG CAPSULE PO SCH (21:40)
[2017-12-19] MEDS: ZOLPIDEM TARTRATE 10 MG TABLET PO PRN (21:40)
[2017-12-20 05:26] VITALS: BP 117/62
[2017-12-20 08:08] VITALS: BP 121/76
[2017-12-20] MEDS: CITALOPRAM HYDROBROMIDE 10 MG TABLET PO SCH (08:51)
[2017-12-20] MEDS: LORazepam 2 MG TABLET PO PRN ×2 (08:51→16:48)
[2017-12-20] MEDS: NICOTINE 14 MG/24 HOUR PATCH TD PRN (09:12)
[2017-12-20 16:33] VITALS: BP 110/66
[2017-12-20] MEDS: LITHIUM CARBONATE 300 MG CAPSULE PO SCH (20:02)
[2017-12-21 03:18] VITALS: BP 110/76
[2017-12-21] MEDS: OLANZapine 5 MG RAPDIS TABLET PO PRN (03:22)
[2017-12-21 08:15] VITALS: BP 109/67
[2017-12-21] MEDS: CITALOPRAM HYDROBROMIDE 10 MG TABLET PO SCH (09:15)
[2017-12-21] MEDS: NICOTINE 14 MG/24 HOUR PATCH TD PRN (14:34)
[2017-12-21 16:20] VITALS: BP 118/65
[2017-12-21] MEDS: LITHIUM CARBONATE 300 MG CAPSULE PO SCH (20:42)
[2017-12-22 08:01] VITALS: BP 118/72
[2017-12-22] MEDS: CITALOPRAM HYDROBROMIDE 10 MG TABLET PO SCH (08:28)
[2017-12-22] MEDS: OLANZapine 5 MG RAPDIS TABLET PO PRN (08:28)
[2017-12-22] MEDS: LORazepam 2 MG TABLET PO PRN (08:28)
[2017-12-22 16:01] VITALS: BP 120/81
[2017-12-22] MEDS: LITHIUM CARBONATE 300 MG CAPSULE PO SCH (20:14)
[2017-12-23 05:45] VITALS: BP 106/69
[2017-12-23] MEDS: CITALOPRAM HYDROBROMIDE 10 MG TABLET PO SCH (08:25)
[2017-12-23] MEDS: NICOTINE 14 MG/24 HOUR PATCH TD PRN (08:25)
[2017-12-23] MEDS: LORazepam 2 MG TABLET PO PRN ×2 (08:26→18:09)
[2017-12-23 09:05] VITALS: BP 117/77
[2017-12-23 16:09] VITALS: BP 122/76
[2017-12-23] MEDS: LITHIUM CARBONATE 300 MG CAPSULE PO SCH (20:24)
[2017-12-24 05:46] VITALS: BP 105/58
[2017-12-24] MEDS: CITALOPRAM HYDROBROMIDE 10 MG TABLET PO SCH (08:19)
[2017-12-24 08:21] VITALS: BP 124/76
[2017-12-24] MEDS: NICOTINE 14 MG/24 HOUR PATCH TD PRN (09:35)
[2017-12-24] MEDS: LORazepam 2 MG TABLET PO PRN ×2 (09:36→17:13)
[2017-12-24 16:01] VITALS: BP 120/69
[2017-12-24] MEDS: LITHIUM CARBONATE 300 MG CAPSULE PO SCH (20:06)
[2017-12-25 00:49] VITALS: BP 102/64
[2017-12-25 08:14] VITALS: BP 113/81
[2017-12-25] MEDS: CITALOPRAM HYDROBROMIDE 10 MG TABLET PO SCH (08:15)
[2017-12-25] MEDS: LORazepam 2 MG TABLET PO PRN ×2 (08:36→14:10)
[2017-12-25] MEDS: NICOTINE 14 MG/24 HOUR PATCH TD PRN (08:37)
[2017-12-25] MEDS: OLANZapine 5 MG RAPDIS TABLET PO PRN (14:10)
[2017-12-25 16:04] VITALS: BP 118/69
[2017-12-25] MEDS: LITHIUM CARBONATE 300 MG CAPSULE PO SCH (20:12)
[2017-12-26 06:11] VITALS: BP 122/73
[2017-12-26 08:23] VITALS: BP 117/74
[2017-12-26] MEDS: CITALOPRAM HYDROBROMIDE 10 MG TABLET PO SCH (08:50)
[2017-12-26] MEDS: LORazepam 2 MG TABLET PO PRN ×2 (08:50→15:48)
[2017-12-26] MEDS: NICOTINE 14 MG/24 HOUR PATCH TD PRN (08:51)
[2017-12-26 16:10] VITALS: BP 119/83
[2017-12-26] MEDS: LITHIUM CARBONATE 300 MG CAPSULE PO SCH (20:02)
[2017-12-26] MEDS: ZOLPIDEM TARTRATE 10 MG TABLET PO PRN (20:02)
[2017-12-27 06:35] VITALS: BP 118/72
[2017-12-27 08:01] VITALS: BP 116/70
[2017-12-27] MEDS: CITALOPRAM HYDROBROMIDE 10 MG TABLET PO SCH (08:29)
[2017-12-27] MEDS: LORazepam 2 MG TABLET PO PRN ×2 (09:51→16:22)
[2017-12-27] MEDS: NICOTINE 14 MG/24 HOUR PATCH TD PRN (09:52)
[2017-12-27 16:37] VITALS: BP 124/80
[2017-12-27] MEDS: LITHIUM CARBONATE 300 MG CAPSULE PO SCH (20:21)
[2017-12-28 01:13] VITALS: BP 120/78
[2017-12-28] MEDS: ZOLPIDEM TARTRATE 10 MG TABLET PO PRN ×2 (01:18→20:09)
[2017-12-28 08:12] VITALS: BP 110/68
[2017-12-28] MEDS: CITALOPRAM HYDROBROMIDE 10 MG TABLET PO SCH (08:43)
[2017-12-28] MEDS: NICOTINE 14 MG/24 HOUR PATCH TD PRN (10:02)
[2017-12-28] MEDS: LORazepam 2 MG TABLET PO PRN ×2 (12:44→16:44)
[2017-12-28 16:15] VITALS: BP 117/68
[2017-12-28] MEDS: LITHIUM CARBONATE 300 MG CAPSULE PO SCH (20:09)
[2017-12-29 05:19] VITALS: BP 114/66
[2017-12-29 08:42] VITALS: BP 121/70
[2017-12-29] MEDS: LORazepam 2 MG TABLET PO PRN ×2 (09:04→16:10)
[2017-12-29] MEDS: NICOTINE 14 MG/24 HOUR PATCH TD PRN (09:04)
[2017-12-29] MEDS: CITALOPRAM HYDROBROMIDE 10 MG TABLET PO SCH (09:06)
[2017-12-29 16:01] VITALS: BP 119/77
[2017-12-29] MEDS: LITHIUM CARBONATE 300 MG CAPSULE PO SCH (20:18)
[2017-12-29] MEDS: ZOLPIDEM TARTRATE 10 MG TABLET PO PRN (20:22)
[2017-12-30 01:01] VITALS: BP 104/65
[2017-12-30 08:05] VITALS: BP 115/62
[2017-12-30] MEDS: CITALOPRAM HYDROBROMIDE 10 MG TABLET PO SCH (08:36)
[2017-12-30] MEDS: LORazepam 2 MG TABLET PO PRN ×2 (09:43→16:57)
[2017-12-30 16:08] VITALS: BP 123/76
[2017-12-30] MEDS: OLANZapine 5 MG RAPDIS TABLET PO PRN (16:58)
[2017-12-30] MEDS: LITHIUM CARBONATE 300 MG CAPSULE PO SCH (20:28)
[2017-12-30] MEDS: ZOLPIDEM TARTRATE 10 MG TABLET PO PRN (20:29)
[2017-12-31 00:52] VITALS: BP 115/63
[2017-12-31 08:06] VITALS: BP 100/76
[2017-12-31] MEDS: CITALOPRAM HYDROBROMIDE 10 MG TABLET PO SCH (08:40)
[2017-12-31] MEDS: LORazepam 2 MG TABLET PO PRN (13:10)
[2017-12-31 16:09] VITALS: BP 119/72
[2017-12-31] MEDS: OLANZapine 5 MG RAPDIS TABLET PO PRN (17:19)
[2017-12-31] MEDS: LITHIUM CARBONATE 300 MG CAPSULE PO SCH (20:13)
[2018-01-01 01:56] VITALS: BP 103/65
[2018-01-01 08:03] VITALS: BP 118/76
[2018-01-01] MEDS: LORazepam 2 MG TABLET PO PRN ×2 (08:32→14:35)
[2018-01-01] MEDS: CITALOPRAM HYDROBROMIDE 10 MG TABLET PO SCH (08:32)
[2018-01-01 16:10] VITALS: BP 118/70
[2018-01-01] MEDS: LITHIUM CARBONATE 300 MG CAPSULE PO SCH (20:01)
[2018-01-02 06:45] VITALS: BP 103/62
[2018-01-02 08:22] VITALS: BP 119/76
[2018-01-02] MEDS: CITALOPRAM HYDROBROMIDE 10 MG TABLET PO SCH (08:30)
[2018-01-02] MEDS: LORazepam 2 MG TABLET PO PRN ×2 (08:30→16:02)
[2018-01-02 16:00] VITALS: BP 117/82
[2018-01-02] MEDS: LITHIUM CARBONATE 300 MG CAPSULE PO SCH (20:20)
[2018-01-03 06:08] VITALS: BP 108/56
[2018-01-03 08:15] VITALS: BP 123/73
[2018-01-03] MEDS: CITALOPRAM HYDROBROMIDE 10 MG TABLET PO SCH (08:18)
[2018-01-03] MEDS: PALIPERIDONE PALMITATE 234 MG/1.5 ML SYRINGE IM SCH (08:18)
[2018-01-03] MEDS: LORazepam 2 MG TABLET PO PRN ×2 (08:35→15:02)
[2018-01-03 16:03] VITALS: BP 124/77
[2018-01-03] MEDS: LITHIUM CARBONATE 300 MG CAPSULE PO SCH (20:21)
[2018-01-04 01:36] VITALS: BP 119/71
[2018-01-04] MEDS: ZOLPIDEM TARTRATE 10 MG TABLET PO PRN (01:40)
[2018-01-04 08:21] VITALS: BP 123/59
[2018-01-04] MEDS: CITALOPRAM HYDROBROMIDE 10 MG TABLET PO SCH (09:09)
[2018-01-04] MEDS: LORazepam 2 MG TABLET PO PRN ×2 (09:14→16:02)
[2018-01-04 16:07] VITALS: BP 113/71
[2018-01-04] MEDS: OLANZapine 5 MG RAPDIS TABLET PO PRN (16:33)
[2018-01-04] MEDS: LITHIUM CARBONATE 300 MG CAPSULE PO SCH (20:33)
[2018-01-05 02:56] VITALS: BP 115/61
[2018-01-05 08:10] VITALS: BP 123/72
[2018-01-05] MEDS: CITALOPRAM HYDROBROMIDE 10 MG TABLET PO SCH (09:08)
[2018-01-05] MEDS: OLANZapine 5 MG RAPDIS TABLET PO PRN (10:15)
[2018-01-05] MEDS: LORazepam 2 MG TABLET PO PRN (16:03)
[2018-01-05 16:21] VITALS: BP 126/80
[2018-01-05] MEDS: LITHIUM CARBONATE 300 MG CAPSULE PO SCH (20:43)
[2018-01-06 02:04] VITALS: BP 110/64
[2018-01-06 08:04] VITALS: BP 114/75
[2018-01-06] MEDS: CITALOPRAM HYDROBROMIDE 10 MG TABLET PO SCH (09:20)
[2018-01-06] MEDS: LORazepam 2 MG TABLET PO PRN ×2 (09:20→16:36)
[2018-01-06 16:11] VITALS: BP 120/72
[2018-01-06] MEDS: LITHIUM CARBONATE 300 MG CAPSULE PO SCH (20:16)
[2018-01-07 00:28] VITALS: BP 105/58
[2018-01-07 08:04] VITALS: BP 116/70
[2018-01-07] MEDS: CITALOPRAM HYDROBROMIDE 10 MG TABLET PO SCH (09:18)
[2018-01-07] MEDS: LORazepam 2 MG TABLET PO PRN (16:03)
[2018-01-07 16:15] VITALS: BP 117/76
[2018-01-07] MEDS: LITHIUM CARBONATE 300 MG CAPSULE PO SCH (20:03)
[2018-01-08 03:24] VITALS: BP 121/64
[2018-01-08 08:25] VITALS: BP 106/63
[2018-01-08] MEDS: CITALOPRAM HYDROBROMIDE 10 MG TABLET PO SCH (09:24)
[2018-01-08] MEDS: LORazepam 2 MG TABLET PO PRN ×2 (09:49→15:49)
[2018-01-08] MEDS: HALOPERIDOL 5 MG TABLET PO PRN (15:49)
[2018-01-08 16:21] VITALS: BP 126/77
[2018-01-08] MEDS: LITHIUM CARBONATE 300 MG CAPSULE PO SCH (20:06)
[2018-01-09 05:45] VITALS: BP 108/60
[2018-01-09 08:04] VITALS: BP 130/80
[2018-01-09] MEDS: CITALOPRAM HYDROBROMIDE 10 MG TABLET PO SCH (09:18)
[2018-01-09] MEDS: LORazepam 2 MG TABLET PO PRN ×2 (09:18→16:17)
[2018-01-09 16:10] VITALS: BP 123/77
[2018-01-09] MEDS: HALOPERIDOL 5 MG TABLET PO PRN (16:17)
[2018-01-09] MEDS: LITHIUM CARBONATE 300 MG CAPSULE PO SCH (20:00)
[2018-01-10] VITALS: BP 106/74
[2018-01-10] MEDS: CITALOPRAM HYDROBROMIDE 10 MG TABLET PO SCH (08:13)
[2018-01-10] MEDS: LORazepam 2 MG TABLET PO PRN ×2 (08:48→12:59)
[2018-01-10 09:07] VITALS: BP 120/72
[2018-01-10] MEDS: NICOTINE 14 MG/24 HOUR PATCH TD PRN (10:27)
[2018-01-10] MEDS: HALOPERIDOL 5 MG TABLET PO PRN (12:59)
[2018-01-10 16:13] VITALS: BP 129/83
[2018-01-10] MEDS: LITHIUM CARBONATE 300 MG CAPSULE PO SCH (20:06)
[2018-01-11 01:20] VITALS: BP 130/86
[2018-01-11] MEDS: ZOLPIDEM TARTRATE 10 MG TABLET PO PRN (01:22)
[2018-01-11] MEDS: LORazepam 2 MG TABLET PO PRN ×2 (08:17→14:49)
[2018-01-11 08:21] VITALS: BP 139/81
[2018-01-11] MEDS: CITALOPRAM HYDROBROMIDE 10 MG TABLET PO SCH (08:54)
[2018-01-11 16:50] VITALS: BP 127/79
[2018-01-11] MEDS: LITHIUM CARBONATE 300 MG CAPSULE PO SCH (20:10)
[2018-01-12 06:36] VITALS: BP 119/78
[2018-01-12 07:55] VITALS: BP 125/68
[2018-01-12 08:02] VITALS: BP 125/68
[2018-01-12] MEDS: CITALOPRAM HYDROBROMIDE 10 MG TABLET PO SCH (08:03)
[2018-01-12] MEDS: LORazepam 2 MG TABLET PO PRN ×2 (08:04→13:45)
[2018-01-12] MEDS: HALOPERIDOL 5 MG TABLET PO PRN (13:44)
[2018-01-12 16:02] VITALS: BP 116/73
[2018-01-12] MEDS: LITHIUM CARBONATE 300 MG CAPSULE PO SCH (20:18)
[2018-01-13 00:18] VITALS: BP 109/65
[2018-01-13] MEDS: HALOPERIDOL 5 MG TABLET PO PRN ×3 (06:10→17:41)
[2018-01-13] MEDS: LORazepam 2 MG TABLET PO PRN ×3 (06:10→17:41)
[2018-01-13 07:51] VITALS: BP 136/83
[2018-01-13] MEDS: CITALOPRAM HYDROBROMIDE 10 MG TABLET PO SCH (08:19)
[2018-01-13 08:30] VITALS: BP 136/83
[2018-01-13 16:00] VITALS: BP 132/78
[2018-01-13] MEDS ORDERED: OLANZapine 10 MG TABLET PO SCH (21:00)
[2018-01-13] MEDS: LITHIUM CARBONATE 300 MG CAPSULE PO SCH (21:05)
[2018-01-14 07:09] VITALS: BP 122/74
[2018-01-14 08:19] VITALS: BP 112/60
[2018-01-14] MEDS ORDERED: TraZODone HCL 100 MG TABLET PO SCH (09:00)
[2018-01-14] MEDS: CITALOPRAM HYDROBROMIDE 10 MG TABLET PO SCH (10:01)
[2018-01-14] MEDS: LORazepam 2 MG TABLET PO PRN (10:08)
[2018-01-14] MEDS ORDERED: CITA10TA68 PO (11:25)
[2018-01-14] MEDS ORDERED: PALI234D IM (11:25)
[2018-01-14] MEDS ORDERED: LITH300C3 PO (11:25)
== END 2018-01-14 15:55 | DRG 750 ==
LOC: B3A 18:17 → B2S 11-23 15:19
DX: F25.1 Schizoaffective disorder, depressive type (principal); R45.851 Suicidal ideations; R74.0 Nonspecific elevation of levels of transaminase and lactic acid dehydrogenase [LDH]; F10.10 Alcohol abuse, uncomplicated; F41.9 Anxiety disorder, unspecified; G47.00 Insomnia, unspecified; Z91.19 Patient's noncompliance with other medical treatment and regimen; K21.9 Gastro-esophageal reflux disease without esophagitis; F19.10 Other psychoactive substance abuse, uncomplicated; Y90.9 Presence of alcohol in blood, level not specified; Z71.41 Alcohol abuse counseling and surveillance of alcoholic; Z71.51 Drug abuse counseling and surveillance of drug abuser
CPT/HCPCS: 80074; 80307; 83036; 84439; 84443; 87081

== ENCOUNTER 2023-03-12 09:04 | Emergency (ER) | payer MEDICARE, OTHER ==
[~2023-03-12] VITALS: Ht 177.8 cm; Wt 122.7 kg
[~2023-03-12 09:04] MED LIST changes: -CITA10TA68 PO; +CITA10TA99 PO; +LITH300C3 PO
[2023-03-12 09:08] VITALS: TEMP 98.5
[2023-03-12] MEDS ORDERED: DIVA-85 PO (09:14)
[2023-03-12] MEDS ORDERED: FLUO10CA24 PO (09:14)
[2023-03-12] MEDS ORDERED: CLOZ100T61 PO ×2 (09:14)
[2023-03-12] MEDS ORDERED: LITH300T PO (09:14)
[2023-03-12] MEDS ORDERED: TRIH5TAB PO (09:14)
[2023-03-12] MEDS ORDERED: METF-1211 PO (09:14)
[2023-03-12 09:37] LABS: GLUCOMETER DEV NAME(LOC) ERT.5; GLUCOSE,POINT OF CARE 104 MG/DL (70-110)
[2023-03-12 09:54] LABS: BASOPHILS % (AUTO) 0.4 % (0.0-2.0); EOSINOPHILS % (AUTO) 2.6 % (1.0-6.0); HEMOGLOBIN 13.9 g/dL (13.5-17.5); LYMPHOCYTES # (AUTO) 1.6 K/uL (1.0-4.8); LYMPHOCYTES % (AUTO) 20.9 % (22.0-44.0); MEAN CORPUSCULAR HEMOGLOBIN 32.8 pg (26.0-34.0); MEAN CORPUSCULAR HGB CONC 34.7 G/dL (31.0-37.0); MEAN CORPUSCULAR VOLUME 95 fL (80-100); MONOCYTES # (AUTO) 0.6 K/uL (0.1-1.0); NEUTROPHILS # (AUTO) 5.1 K/uL (1.8-7.7); NEUTROPHILS % (AUTO) 68.1 % (40.0-70.0); PLATELET COUNT (AUTO) 207 K/uL (150-450); RED BLOOD CELL COUNT(AUTO) 4.23 MIL/uL (4.50-5.90); RED CELL DISTRIBUTION WIDTH 13.8 % (11.5-14.5); WHITE BLOOD COUNT (AUTO) 7.5 K/uL (4.5-11.0)
[2023-03-12 10:02] LABS: ANION GAP 7 mmol/L (8-16); CALCIUM, TOTAL 9.3 mg/dL (8.8-10.5); CARBON DIOXIDE 30 mmol/L (22-29); CHLORIDE 104 mmol/L (98-107); CREATININE 0.78 mg/dL (0.60-1.30); GLOMERULAR FILTR. RATE CALC > 60 mL/min (>60); GLUCOSE,RANDOM 95 mg/dL (70-110); POTASSIUM 4.2 mmol/L (3.5-5.1); SODIUM SERUM 141 mmol/L (136-145); UREA NITROGEN, BLOOD 6 mg/dL (7-18)
[2023-03-12 10:07] LABS: VALPROIC ACID 69 mcg/mL (50-100)
[2023-03-12 10:12] VITALS: BP 154/89; PULSE 96; RESP 18
== END 2023-03-12 10:58 | disposition home or self-care (01) ==
LOC: EMS 09:04
DX: R03.0 Elevated blood-pressure reading, without diagnosis of hypertension (principal); R42 Dizziness and giddiness; F31.9 Bipolar disorder, unspecified; F20.9 Schizophrenia, unspecified; F12.90 Cannabis use, unspecified, uncomplicated
CPT/HCPCS: 80048; 80164; 80178; 82962; 85025; 99283